=== PATIENT | male | born 1950 | race African-American/Black ===

== ENCOUNTER 2017-12-05 07:12 | Inpatient (IN) | payer OTHER, MEDICARE ==
[~2017-12-05] VITALS: Ht 172.7 cm; Wt 87.0 kg
[2017-12-05 07:12] VITALS: BP 123/89; PULSE 135; RESP 20; TEMP 97.8; O2SAT 97
[~2017-12-05 07:12] MED LIST: PRIL20CA PO
[2017-12-05 07:27] VITALS: BP 127/88; PULSE 125; RESP 22; O2SAT 96
[2017-12-05] MEDS ORDERED: SODIUM CHLORIDE 0.9% FLUSH 10 ML FLUSH IVF PRN (07:30)
[2017-12-05] MEDS ORDERED: [UNRECOGNIZED DRUG - CODE] PO (07:32)
[2017-12-05] MEDS ORDERED: CYCL5TAB PO (07:33)
[2017-12-05] MEDS ORDERED: [UNRECOGNIZED DRUG - OTHER] PO (07:33)
[2017-12-05] MEDS ORDERED: OMEP20TA93 PO (07:33)
[2017-12-05] MEDS ORDERED: ONDANSETRON HCL 4 MG/2 ML VIAL IV PUSH ONE (07:45)
[2017-12-05] MEDS ORDERED: SODIUM CHLOR 0.9% 1000 ML INJ 1,000 ML IV ONE ×3 (07:45→11:00)
--- NOTE | 2017-12-05 08:04 | RADRPT ---
EXAM DATE/TIME: 12/05/2017 07:32 [facility] COMPARISON: No previous studies available for comparison. INDICATIONS : Pain in center of chest, short of breath, has pain in abdomen and all over body MEDICAL HISTORY : None. SURGICAL HISTORY : None. ENCOUNTER: Initial ACUITY: 1 day PAIN SCORE: Non-responsive. LOCATION: Bilateral chest FINDINGS: A single view of the chest demonstrates the lungs to be symmetrically aerated without evidence of mas s, infiltrate or effusion. The cardiomediastinal contours are unremarkable. Osseous structures are intact. CONCLUSION: 1. No acute cardiopulmonary disease. Shorty Alexander MD on December 05, 2017 at 8:02 Board Certified Radiologist. This report was verified electronically.
[2017-12-05 08:27] LABS: AUTOMATED NEUTROPHIL # 5.4 TH/MM3 (1.8-7.7); BASOPHIL # 0.1 TH/MM3 (0-0.2); BASOPHIL % 0.9 % (0.0-2.0); EOSINOPHIL # 0.1 TH/MM3 (0-0.4); EOSINOPHIL % 1.3 % (0.0-4.0); HEMATOCRIT 50.1 % (39.0-51.0); HEMOGLOBIN 16.8 GM/DL (13.0-17.0); LYMPH % 31.6 % (9.0-44.0); MEAN CELL VOLUME 89.4 FL (80.0-100.0); MEAN CORPUSCULAR HEMOGLOBIN 29.9 PG (27.0-34.0); MEAN CORPUSCULAR HGB CONC 33.4 % (32.0-36.0); MEAN PLATELET VOLUME 9.1 FL (7.0-11.0); MONO % 8.8 % (0.0-8.0); MONOCYTE # 0.8 TH/MM3 (0-0.9); NEUT % 57.4 % (16.0-70.0); PLATELET COUNT 293 TH/MM3 (150-450); RED BLOOD COUNT 5.61 MIL/MM3 (4.50-5.90); RED CELL DISTRIBUTION WIDTH 14.1 % (11.6-17.2); WHITE BLOOD COUNT 9.4 TH/MM3 (4.0-11.0)
[2017-12-05 08:34] LABS: INTERNATIONAL NORMALIZED RATIO 1.2 RATIO; PROTHROMBIN TIME - PATIENT 12.2 SEC (9.8-11.6)
[2017-12-05 08:43] LABS: ALT (GPT) 44 U/L (12-78); AST (GOT) 36 U/L (15-37); BICARBONATE 20.4 MEQ/L (21.0-32.0); BLOOD UREA NITROGEN 17 MG/DL (7-18); CALCIUM 9.6 MG/DL (8.5-10.1); CHLORIDE 102 MEQ/L (98-107); CREATININE 2.33 MG/DL (0.60-1.30); GLOMERULAR FILTRATION RATE 34 ML/MIN (>89); GLUCOSE,RANDOM 185 MG/DL (74-106); SODIUM (NA) 137 MEQ/L (136-145)
[2017-12-05 08:48] LABS: ALKALINE PHOSPHATASE 57 U/L (45-117); TOTAL BILIRUBIN ADULT 0.4 MG/DL (0.2-1.0); TOTAL PROTEIN 10.1 GM/DL (6.4-8.2); TROPONIN I LESS THAN 0.02 NG/ML (0.02-0.05)
[2017-12-05 09:00] VITALS: BP 132/99; PULSE 88; RESP 16; O2SAT 99
[2017-12-05] MEDS ORDERED: PIPERACIL-TAZO 4.5 GM PREMIX 100 ML IV ONE (09:00)
--- NOTE | 2017-12-05 09:09 | PD ---
HPI Chief Complaint: Chest Pain Time Seen by Provider: 07:31 Travel History International Travel<30 days: No Contact w/Intl Traveler<30days: No Traveled to known affect area: No History of Present Illness HPI 67-year-old male presents with diffuse body aches, muscle cramps, nonbloody vomiting and diarrhea and abdominal pain since 2 AM this morning. He states he told out front he was also having chest pain but he is hurting all over. He states he took his 's Flexeril without relief. He denies any other specific complaints. He states he was feeling fine yesterday. He denies any sick contacts. He denies specific modifying factors. Quality is cramps. Severity is all over. He states that it is intermittent in nature. PFSH Past Medical History GERD: Yes Hypertension: Yes Past Surgical History Surgical History: No Previous Surgery Genitourinary Surgery: Yes Social History Alcohol Use: Yes (SOCIALLY-weekends) Tobacco Use: Yes (/ PPD) Substance Use: No Allergies-Medications (Allergen,Severity, Reaction): Coded Allergies: No Known Allergies (Verified Allergy, Unknown, 04/20/08) Reported Meds & Prescriptions Reported Meds & Active Scripts Active Reported Omeprazole 20 Mg Tab 20 Mg PO DAILY Flexeril (Cyclobenzaprine HCl) 5 Mg Tab 5 Mg PO TID [yrn-shea] 1 Tab PO DAILY [daron-plex] 1 Tab PO DAILY Review of Systems Except as stated in HPI: all other systems reviewed are Neg Physical Exam Narrative General: No apparent distress, well appearing ENT: Mucous membranes moist Neck: Neck is supple, no meningeal signs, trachea is midline Cardiovascular: Regular rate and rhythm Lungs: No increased respiratory effort noted, CTA bilaterally Abdomen: Soft, mild tenderness diffusely with deep palpation, ND, no rebound or guarding Extremities: No edema, no specific joint pain with rom of all joints Neuro: Awake, motor and sensation grossly intact, normal speech Psych: Appropriate mood and affect Data Data Last Documented VS Vital Signs Date Time Temp Pulse Resp B/P (MAP) Pulse Ox O2 Delivery O2 Flow Rate FiO2 12/05/17 09:00 88 16 132/99 (110) 99 Room Air 12/05/17 07:12 97.8 Orders Orders Electrocardiogram (12/05/17 07:26) Ckmb (Isoenzyme) Profile (12/05/17 07:26) Complete Blood Count With Diff (12/05/17 07:26) Comprehensive Metabolic Panel (12/05/17 07:26) Magnesium (Mg) (12/05/17 07:26) Prothrombin Time / Inr (Pt) (12/05/17 07:26) Act Partial Throm Time (Ptt) (12/05/17 07:26) Troponin I (12/05/17 07:26) Lipase (12/05/17 07:26) Chest, Single Ap (12/05/17 07:26) Ecg Monitoring (12/05/17 07:26) Bilateral Bp Monitoring (12/05/17 07:26) Iv Access Insert/Monitor (12/05/17 07:) Oximetry (12/05/17 07:) Sodium Chloride 0.9% Flush (Ns Flush) (12/05/17 07:30) Influenzae A/B Antigen (12/05/17 07:35) Sodium Chlor 0.9% 1000 Ml Inj (Ns 1000 M (12/05/17 07:45) Ondansetron Inj (Zofran Inj) (12/05/17 07:45) Alcohol (Ethanol) (12/05/17 07:35) Drug Screen, Random Urine (12/05/17 07:35) Lactic Acid (12/05/17 07:35) CKMB (12/05/17 08:00) CKMB% (12/05/17 08:00) Urinalysis - C+S If Indicated (12/05/17 08:59) Blood Culture (12/05/17 08:59) Piperacil-Tazo 4.5 Gm Premix (Zosyn 4.5 (12/05/17 09:00) Sodium Chlor 0.9% 1000 Ml Inj (Ns 1000 M (12/05/17 09:00) Ct Abd/Pel W/O Iv Contrast (12/05/17 ) Drug Screen, Random Urine (12/05/17 09:01) Admit Order (Ed Use Only) (12/05/17 10:13) Labs Laboratory Tests Test 12/05/17 08:00 White Blood Count 9.4 TH/MM3 Red Blood Count 5.61 MIL/MM3 Hemoglobin 16.8 GM/DL Hematocrit 50.1 % Mean Corpuscular Volume 89.4 FL Mean Corpuscular Hemoglobin 29.9 PG Mean Corpuscular Hemoglobin Concent 33.4 % Red Cell Distribution Width 14.1 % Platelet Count 293 TH/MM3 Mean Platelet Volume 9.1 FL Neutrophils (%) (Auto) 57.4 % Lymphocytes (%) (Auto) 31.6 % Monocytes (%) (Auto) 8.8 % Eosinophils (%) (Auto) 1.3 % Basophils (%) (Auto) 0.9 % Neutrophils # (Auto) 5.4 TH/MM3 Lymphocytes # (Auto) 3.0 TH/MM3 Monocytes # (Auto) 0.8 TH/MM3 Eosinophils # (Auto) 0.1 TH/MM3 Basophils # (Auto) 0.1 TH/MM3 CBC Comment DIFF FINAL Differential Comment Prothrombin Time 12.2 SEC Prothromb Time International Ratio 1.2 RATIO Activated Partial Thromboplast Time 24.3 SEC Blood Urea Nitrogen 17 MG/DL Creatinine 2.33 MG/DL Random Glucose 185 MG/DL Total Protein 10.1 GM/DL Albumin 5.0 GM/DL Calcium Level 9.6 MG/DL Magnesium Level 1.0 MG/DL Alkaline Phosphatase 57 U/L Aspartate Amino Transf (AST/SGOT) 36 U/L Alanine Aminotransferase (ALT/SGPT) 44 U/L Total Bilirubin 0.4 MG/DL Sodium Level 137 MEQ/L Potassium Level 3.3 MEQ/L Chloride Level 102 MEQ/L Carbon Dioxide Level 20.4 MEQ/L Anion Gap 15 MEQ/L Estimat Glomerular Filtration Rate 34 ML/MIN Lactic Acid Level 3.6 mmol/L Total Creatine Kinase 593 U/L Creatine Kinase MB 6.2 NG/ML Creatine Kinase MB % 1.0 % Troponin I LESS THAN 0.02 NG/ML Lipase 357 U/L Ethyl Alcohol Level LESS THAN 3 MG/DL MDM Medical Decision Making Medical Screen Exam Complete: Yes Emergency Medical Condition: Yes Medical Record Reviewed: Yes (Past history confirmed) Interpretation(s) CBC & BMP Diagram 12/05/17 08:00 Total Protein 10.1 H, Albumin 5.0, Calcium Level 9.6, Magnesium Level 1.0 L, Alkaline Phosphatase 57, Aspartate Amino Transf (AST/SGOT) 36, Alanine Aminotransferase (ALT/SGPT) 44, Total Bilirubin 0.4 Last 24 hours Impressions Chest X-Ray 12/05/17 0726 Signed Impressions: Service Date/Time: Tuesday, December 05, 2017 07:32 - CONCLUSION: 1. No acute cardiopulmonary disease. Shorty Alexander MD Abdomen/Pelvis CT 12/05/17 0000 Signed Impressions: Service Date/Time: Tuesday, December 05, 2017 09:19 - CONCLUSION: 1. Possible diffuse gastric wall thickening. If there are symptoms referrable to the upper GI tract, may consider direct visualization endoscopy. 2. Otherwise negative noncontrast CT abdomen/pelvis. Chicho Healy MD No prior creatinine for comparison except for normal in 2011 Differential Diagnosis URI, rhabdomyolysis, gastroenteritis, renal failure, electrolyte abnormality Narrative Course We will check blood work, influenza, chest x-ray and dose with Zofran and IV fluids and reevaluate Given elevated lactate we will add on blood cultures, urinalysis, CT scan abdominal pelvis and repeat IV fluids and dose with Zosyn while awaiting testing CT abdomen and pelvis shows thickened area of stomach without emergent process. Patient agrees to observation in the hospital for repeat lactate with continued treatment. Sepsis Criteria SIRS Criteria (2 or more): Heart rate over 90, RR > 20 or PaCO2 < 32 Sepsis Criteria (SIRS+source): Infect source susp/known Severe Sepsis (+one): Lactate >2 Criteria Outcome: Meets severe sepsis criteria Physician Communication Physician Communication dr camejo agrees to admit Diagnosis Primary Impression: Lactic acidosis Additional Impressions: Vomiting and diarrhea Body aches Gastric wall thickening Admitting Information Admitting Physician Requests: Observation Kylie Hill MD Dec 05, 2017 09:09
--- NOTE | 2017-12-05 09:45 | RADRPT ---
EXAM DATE/TIME: 12/05/2017 09:19 [facility] COMPARISON: No previous studies available for comparison. INDICATIONS : Abdominal pain and cramping ORAL CONTRAST: No oral contrast ingested. RADIATION DOSE: 6.85 CTDIvol (mGy) MEDICAL HISTORY : Hypertension. Gastroesophageal reflux disease. SURGICAL HISTORY : None. ENCOUNTER: Initial ACUITY: 2 days PAIN SCALE: 5/10 LOCATION: lower quadrant TECHNIQUE: Volumetric scanning of the abdomen and pelvis was performed. Using automated exposure control and ad justment of the mA and/or kV according to patient size, radiation dose was kept as low as reasonably achievable to obtain optimal diagnostic quality images. DICOM format image data is available electro nically for review and comparison. FINDINGS: LOWER LUNGS: The visualized lower lungs are clear. LIVER: Homogeneous density without lesion for noncontrast technique. There is no dilation of the biliary tr ee. No calcified gallstones. SPLEEN: Normal size without lesion. PANCREAS: Within normal limits. KIDNEYS: Normal in size and shape. There is no mass, stone, or hydronephrosis. ADRENAL GLANDS: Within normal limits. VASCULAR: There is no aortic aneurysm. BOWEL/MESENTERY: The stomach is nondistended. The wall of the stomach is prominent along both the lesser and greater curvature which is a nonspecific finding. No dilated loops of small large bowel. No evidence of rama e fluid. ABDOMINAL WALL: Within normal limits. RETROPERITONEUM: There is no lymphadenopathy. BLADDER: No wall thickening or mass. REPRODUCTIVE: Within normal limits. INGUINAL: There is no lymphadenopathy or hernia. MUSCULOSKELETAL: Within normal limits for patient age. CONCLUSION: 1. Possible diffuse gastric wall thickening. If there are symptoms referrable to the upper GI tract, may consider direct visualization endoscopy. 2. Otherwise negative noncontrast CT abdomen/pelvis. Chicho Healy MD on December 05, 2017 at 9:39 Board Certified Radiologist. This report was verified electronically.
[2017-12-05] MEDS ORDERED: SODIUM CHLORIDE 0.9% FLUSH 10 ML FLUSH IV FLUSH PRN (10:15)
[2017-12-05] MEDS ORDERED: NALOXONE HCL 0.4 MG/ML AMP IV PUSH PRN (10:15)
[2017-12-05] MEDS ORDERED: POTASSIUM CHLORIDE 20 MEQ CONTROLLED RELEASE TAB PO ONE (12:00)
[2017-12-05] MEDS ORDERED: POTASSIUM CHLOR 20 MEQ PREMIX 100 ML IV SCH (12:00)
[2017-12-05] MEDS ORDERED: ONDANSETRON HCL 4 MG/2 ML VIAL IVP PRN (12:00)
[2017-12-05] MEDS: SODIUM CHLOR 0.9% 1000 ML INJ 1,000 ML IV SCH ×2 (12:47→22:21)
[2017-12-05] MEDS: PANTOPRAZOLE SODIUM 40 MG VIAL IV PUSH SCH (12:48)
[2017-12-05 13:40] VITALS: BP 134/97; PULSE 95; RESP 24; O2SAT 98
--- NOTE | 2017-12-05 15:17 | HHI.HP ---
HPI [facility] Primary Care Physician No Primary Care Physician Admission Diagnosis vomiting, diarrhea, lactic acidosis Diagnoses: Travel History International Travel<30 Days: No Contact w/Intl Traveler <30 Da: No Traveled to Known Affected Are: No History of Present Illness spasms this mornign diarrhea abotu 4-5x this am vomited 3x adominal pain is all over no black or red was sweatign did not measure no sick contact no outside food about 3 weeks ago, had flu- went to his doctor and got some prescription - 6 packs 2 pills then 1 pill for next 4 days did have diarrhea then as well frequent urination then [facility] lpga and nova meds finsihed about a week ago have not used heavy weights or so past 6 months Review of Systems Except as stated in HPI: all other systems reviewed are Neg Past Family Social History Past Medical History htn Past Surgical History colonoscopy- was told to come back in 10yrs, and is almost due Allergies: Coded Allergies: No Known Allergies (Verified Allergy, Unknown, 04/20/08) Family History none that he knows of Social History quit smoking 10yrs ago drink etoh only every now and then no drugs Physical Exam Vital Signs Vital Signs Date Time Temp Pulse Resp B/P (MAP) Pulse Ox O2 Delivery O2 Flow Rate FiO2 12/05/17 14:58 12/05/17 13:40 95 24 134/97 (109) 98 Room Air 12/05/17 09:00 88 16 132/99 (110) 99 Room Air 12/05/17 07:27 125 22 127/88 (101) 96 Room Air 12/05/17 07:12 97.8 135 20 123/89 (100) 97 Room Air Physical Exam GENERAL: This is a well-nourished, well-developed patient, in no apparent distress. SKIN: No rashes, ecchymoses or lesions. Cool and dry. HEAD: Atraumatic. Normocephalic. No temporal or scalp tenderness. EYES: No scleral icterus. No injection or drainage. ENT: Nose without bleeding, purulent drainage or septal hematomaAirway patent. NECK: Trachea midline. No JVD CARDIOVASCULAR: Regular rate and rhythm without murmurs, gallops, or rubs. RESPIRATORY: Clear to auscultation. Breath sounds equal bilaterally. No wheezes , rales, or rhonchi. GASTROINTESTINAL: Abdomen soft, non-tender, nondistended. No guarding. MUSCULOSKELETAL: Extremities without clubbing, cyanosis, or edema. . No calf tenderness. NEUROLOGICAL: Awake and alert. Motor and sensory grossly within normal limits Normal speech. Laboratory Laboratory Tests Test 12/05/17 08:00 White Blood Count 9.4 Red Blood Count 5.61 Hemoglobin 16.8 Hematocrit 50.1 Mean Corpuscular Volume 89.4 Mean Corpuscular Hemoglobin 29.9 Mean Corpuscular Hemoglobin Concent 33.4 Red Cell Distribution Width 14.1 Platelet Count 293 Mean Platelet Volume 9.1 Neutrophils (%) (Auto) 57.4 Lymphocytes (%) (Auto) 31.6 Monocytes (%) (Auto) 8.8 Eosinophils (%) (Auto) 1.3 Basophils (%) (Auto) 0.9 Neutrophils # (Auto) 5.4 Lymphocytes # (Auto) 3.0 Monocytes # (Auto) 0.8 Eosinophils # (Auto) 0.1 Basophils # (Auto) 0.1 CBC Comment DIFF FINAL Differential Comment Prothrombin Time 12.2 Prothromb Time International Ratio 1.2 Activated Partial Thromboplast Time 24.3 Blood Urea Nitrogen 17 Creatinine 2.33 Random Glucose 185 Total Protein 10.1 Albumin 5.0 Calcium Level 9.6 Magnesium Level 1.0 Alkaline Phosphatase 57 Aspartate Amino Transf (AST/SGOT) 36 Alanine Aminotransferase (ALT/SGPT) 44 Total Bilirubin 0.4 Sodium Level 137 Potassium Level 3.3 Chloride Level 102 Carbon Dioxide Level 20.4 Anion Gap 15 Estimat Glomerular Filtration Rate 34 Lactic Acid Level 3.6 Total Creatine Kinase 593 Creatine Kinase MB 6.2 Creatine Kinase MB % 1.0 Troponin I LESS THAN 0.02 Lipase 357 Ethyl Alcohol Level LESS THAN 3 Date/Time Source Procedure Growth Status 12/05/17 09:30 Blood Peripheral Aerobic Blood Culture Pending Received 12/05/17 09:30 Blood Peripheral Anaerobic Blood Culture Pending Received 12/05/17 08:10 Nasal Aspirate Influenza Types A,B Antigen (MILADY) - Final NEGATIVE FOR FLU A AND B ANTIGEN.... Complete Result Diagram: 12/05/17 0800 12/05/17 0800 Imaging Last 48 hours Impressions Chest X-Ray 12/05/17 0726 Signed Impressions: Service Date/Time: Tuesday, December 05, 2017 07:32 - CONCLUSION: 1. No acute cardiopulmonary disease. Shorty Alexander MD Abdomen/Pelvis CT 12/05/17 0000 Signed Impressions: Service Date/Time: Tuesday, December 05, 2017 09:19 - CONCLUSION: 1. Possible diffuse gastric wall thickening. If there are symptoms referrable to the upper GI tract, may consider direct visualization endoscopy. 2. Otherwise negative noncontrast CT abdomen/pelvis. Chicho Healy MD [place] VTE Risk Assessment Caprini VTE Risk Assessment: Mod/High Risk (score >= 2) Caprini Risk Assessment Model Point Value = 1 Point Value = 2 Point Value = 3 Point Value = 5 Age 41-60 Minor surgery BMI > 25 kg/m2 Swollen legs Varicose veins or History of unexplained or recurrent spontaneous Oral contraceptives or hormone replacement Sepsis (< 1 month) Serious lung disease, including pneumonia (< 1 month) Abnormal pulmonary function Acute myocardial infarction Congestive heart failure (< 1 month) History of inflammatory bowel disease Medical patient at bed rest Age 61-74 Arthroscopic surgery Major open surgery (> 45 min) Laparoscopic surgery (> 45 min) Malignancy Confined to bed (> 72 hours) Immobilizing plaster cast Central venous access Age >= 75 History of VTE Family history of VTE Factor V Leiden Prothrombin [id number] Lupus anticoagulant Anticardiolipin antibodies Elevated serum homocysteine Heparin-induced thrombocytopenia Other congenital or acquired thrombophilia Stroke (< 1 month) Elective arthroplasty Hip, pelvis, or leg fracture Acute spinal cord injury (< 1 month) Prophylaxis Regimen Total Risk Factor Score Risk Level Prophylaxis Regimen 0-1 Low Early ambulation 2 Moderate Order ONE of the following: *Sequential Compression Device (SCD) *Heparin 5000 units SQ BID 3-4 Higher Order ONE of the following medications: *Heparin 5000 units SQ TID *Enoxaparin/Lovenox 40 mg SQ daily (WT < 150 kg, CrCl > 30 mL/min) *Enoxaparin/Lovenox 30 mg SQ daily (WT < 150 kg, CrCl > 10-29 mL/min) *Enoxaparin/Lovenox 30 mg SQ BID (WT < 150 kg, CrCl > 30 mL/min) AND/OR *Sequential Compression Device (SCD) 5 or more Highest Order ONE of the following medications: *Heparin 5000 units SQ TID (Preferred with Epidurals) *Enoxaparin/Lovenox 40 mg SQ daily (WT < 150 kg, CrCl > 30 mL/min) *Enoxaparin/Lovenox 30 mg SQ daily (WT < 150 kg, CrCl > 10-29 mL/min) *Enoxaparin/Lovenox 30 mg SQ BID (WT < 150 kg, CrCl > 30 mL/min) AND *Sequential Compression Device (SCD) Assessment and Plan Assessment and Plan Impression: gastroenteritis. However somewhat unusual presentation. Suspect the patient is having these symptoms for about 3 weeks. Rule out C. difficile colitis given patient was on antibiotics as well. acute renal failure mild ck elevation hx of taking supplements [id number] nonprescription. hx of htn Plan: IV hydration. Stool for C. difficile. Will also send stool studies for cultures. PPI. GI consult. Patient reports he takes a blood pressure medicine which is 10 mg. He however does not remember the name and is not on meds list as this was not part of the bottles that the patient's brought in. For now, would start patient on Norvasc 10 mg for BP control. We'll need to check with pharmacy in the morning. We'll follow renal function post hydration. Follow CPK serially. Patient is informed regarding caution with nonprescription [id number] herbal medications. DVT prophylaxis with SCD. Discussed Condition With Patient, ER physician Physician Certification Order for Inpatient Services The services are ordered in accordance with Medicare regulations or non- Medicare payer requirements, as applicable. In the case of services not specified as inpatient-only, they are appropriately provided as inpatient services in accordance with the 2-midnight benchmark. days is the estimated time the patient will need to remain in the hospital, assuming treatment plan goals are met and no additional complications. Danii Vance MD Dec 05, 2017 15:17
[2017-12-05 16:00] VITALS: BP 143/106; PULSE 88; RESP 19; TEMP 97.6; O2SAT 97
[2017-12-05] MEDS ORDERED: MAGNESIUM SULFATE 1 GM PREMIX 100 ML IV ONE (16:30)
--- NOTE | 2017-12-05 16:30 | PD.CONS ---
HPI History of Present Illness This is a 67 year old male who presented with nausea, vomiting, abd pain, diarrhea. This morning he had n/v, with lower abd pain that became diffuse, and loose stools. he feels better at this time. No blood in stool or vomit, no black tarry stool. He occasionally notices BRBPR after eating spicy food, attributes this to hemorrhoid irritation. he had a z pack for his flu 2 weeks ago. He does not have a fever. Denies sick contacts, change in medications or routine. Not on blood thinners. CT showed poss gastric wall thickening. Had colonoscopy 10 y ago at [facility] and "no polyps were found." WAs scheduled for one last week but he cancelled b/c of insurance issues. (Brooke Magaña) PFSH Past Medical History htn GERD Past Surgical History colonoscopy- was told to come back in 10yrs, and is almost due (Brooke Magaña) Coded Allergies: No Known Allergies (Verified Allergy, Unknown, 04/20/08) Family History none that he knows of Social History quit smoking 10yrs ago drink etoh only every now and then no drugs (Brooke Magaña) Review of Systems Constitutional: DENIES: Fever Endocrine: DENIES: Polydipsia Eyes: DENIES: Blurred vision Ears, nose, mouth, throat: DENIES: Hearing loss Respiratory: DENIES: Hemoptysis Gastrointestinal: DENIES: Abdominal pain, Diarrhea, Nausea, Vomiting Musculoskeletal: DENIES: Joint pain Integumentary: DENIES: Abnormal pigmentation Hematologic/lymphatic: DENIES: Bruising Immunologic/allergic: DENIES: Eczema Neurologic: DENIES: Abnormal gait Psychiatric: DENIES: Anxiety (Brooke Magaña) GI Exam Vitals I&O Vital Signs Date Time Temp Pulse Resp B/P (MAP) Pulse Ox O2 Delivery O2 Flow Rate FiO2 12/05/17 14:58 12/05/17 13:40 95 24 134/97 (109) 98 Room Air 12/05/17 09:00 88 16 132/99 (110) 99 Room Air 12/05/17 07:27 125 22 127/88 (101) 96 Room Air 12/05/17 07:12 97.8 135 20 123/89 (100) 97 Room Air I/O 12/04/17 12/04/17 12/04/17 12/05/17 12/05/17 12/05/17 07:00 15:00 23:00 07:00 15:00 23:00 Intake Total 2100 ml 0 ml Balance 2100 ml 0 ml Intake IV Total 2100 ml 0 ml Imaging Last Impressions Chest X-Ray 12/05/17 0726 Signed Impressions: Service Date/Time: Tuesday, December 05, 2017 07:32 - CONCLUSION: 1. No acute cardiopulmonary disease. Shorty Alexander MD Abdomen/Pelvis CT 12/05/17 0000 Signed Impressions: Service Date/Time: Tuesday, December 05, 2017 09:19 - CONCLUSION: 1. Possible diffuse gastric wall thickening. If there are symptoms referrable to the upper GI tract, may consider direct visualization endoscopy. 2. Otherwise negative noncontrast CT abdomen/pelvis. Chicho Healy MD Laboratory Test 12/05/17 08:00 White Blood Count 9.4 TH/MM3 Red Blood Count 5.61 MIL/MM3 Hemoglobin 16.8 GM/DL Hematocrit 50.1 % Mean Corpuscular Volume 89.4 FL Mean Corpuscular Hemoglobin 29.9 PG Mean Corpuscular Hemoglobin Concent 33.4 % Red Cell Distribution Width 14.1 % Platelet Count 293 TH/MM3 Mean Platelet Volume 9.1 FL Neutrophils (%) (Auto) 57.4 % Lymphocytes (%) (Auto) 31.6 % Monocytes (%) (Auto) 8.8 % Eosinophils (%) (Auto) 1.3 % Basophils (%) (Auto) 0.9 % Neutrophils # (Auto) 5.4 TH/MM3 Lymphocytes # (Auto) 3.0 TH/MM3 Monocytes # (Auto) 0.8 TH/MM3 Eosinophils # (Auto) 0.1 TH/MM3 Basophils # (Auto) 0.1 TH/MM3 CBC Comment DIFF FINAL Differential Comment Prothrombin Time 12.2 SEC Prothromb Time International Ratio 1.2 RATIO Activated Partial Thromboplast Time 24.3 SEC Blood Urea Nitrogen 17 MG/DL Creatinine 2.33 MG/DL Random Glucose 185 MG/DL Total Protein 10.1 GM/DL Albumin 5.0 GM/DL Calcium Level 9.6 MG/DL Magnesium Level 1.0 MG/DL Alkaline Phosphatase 57 U/L Aspartate Amino Transf (AST/SGOT) 36 U/L Alanine Aminotransferase (ALT/SGPT) 44 U/L Total Bilirubin 0.4 MG/DL Sodium Level 137 MEQ/L Potassium Level 3.3 MEQ/L Chloride Level 102 MEQ/L Carbon Dioxide Level 20.4 MEQ/L Anion Gap 15 MEQ/L Estimat Glomerular Filtration Rate 34 ML/MIN Lactic Acid Level 3.6 mmol/L Total Creatine Kinase 593 U/L Creatine Kinase MB 6.2 NG/ML Creatine Kinase MB % 1.0 % Troponin I LESS THAN 0.02 NG/ML Lipase 357 U/L Ethyl Alcohol Level LESS THAN 3 MG/DL Date/Time Source Procedure Growth Status 12/05/17 09:30 Blood Peripheral Aerobic Blood Culture Pending Received 12/05/17 09:30 Blood Peripheral Anaerobic Blood Culture Pending Received 12/05/17 08:10 Nasal Aspirate Influenza Types A,B Antigen (MILADY) - Final NEGATIVE FOR FLU A AND B ANTIGEN.... Complete Physical Examination HEENT: PERRL; normocephalic; atraumatic; no jaundice. CHEST: CTA CARDIAC: irr HR ABDOMEN: Soft, nondistended, nontender; no hepatosplenomegaly; bowel sounds are present in all four quadrants. EXTREMITIES: No clubbing, cyanosis, or edema. SKIN: Normal; no rash; no jaundice. DIRECTOR SEMICONDUCTOR: No focal deficits; alert and oriented times three. (Brooke Magaña) Assessment and Plan Plan ASSESSMENT - n/v/diarrhea, abd pain, abnormal imaging - onset today. sx have improved since this morning. CT showed poss gastric wall thickening last colonoscopy 10y ago no polyps found, due for his colonoscopy. labs unremarkable - acute renal failure, elevated ck per primary PLAN - EGD - obtain consent - NPO after midnight - clears for now - stool studies - colonoscopy inpt vs outpt - further recs to follow pt seen by myself and Dr Woods and this note is on his behalf (Brooke Magaña) Physician Comments Seen and examined with KENNEDY, egd tomorrow. Stool studies. Colonoscopy once renal fxns improved. Thank you. (Los Woods MD) Brooke Magaña Dec 05, 2017 16:30 Los Woods MD Dec 05, 2017 16:46
--- NOTE | 2017-12-05 19:56 | EKG ---
Date Performed: 12/05/2017 Time Performed: 07:25:56 PTAGE: 67 years EKG: SINUS TACHYCARDIA NONSPECIFIC T-WAVE ABNORMALITY ABNORMAL RHYTHM ECG PREVIOUS TRACING : 12/06/2011 03.42 WHEN COMPARED TO PRIOR TRACING THE PATIENT IS NOW TACHYCARD IC. DOCTOR: Yandy Sparks Interpretating Date/Time 12/05/2017 19:55:58
[2017-12-05 20:00] VITALS: BP 137/94; PULSE 85; PULSE 90; RESP 18; TEMP 97.8; O2SAT 93
[2017-12-05] MEDS: SODIUM CHLORIDE 0.9% FLUSH 10 ML FLUSH IV FLUSH SCH (21:00)
[2017-12-05 22:18] LABS: TROPONIN I 0.03 NG/ML (0.02-0.05)
[2017-12-05] MEDS ORDERED: LACTATED RINGER'S 1000 ML IV PRN (22:45)
[2017-12-06] VITALS (9 sets, daily range): BP systolic 119–141; BP diastolic 85–97; PULSE 75–91; RESP 18–20; TEMP 97–98; O2SAT 96–99
[2017-12-06] MEDS: SODIUM CHLOR 0.9% 1000 ML INJ 1,000 ML IV SCH ×3 (05:20→21:49)
[2017-12-06 06:42] LABS: BASOPHIL # 0.1 TH/MM3 (0-0.2); BASOPHIL % 1.2 % (0.0-2.0); EOSINOPHIL # 0.2 TH/MM3 (0-0.4); EOSINOPHIL % 2.5 % (0.0-4.0); HEMATOCRIT 40.3 % (39.0-51.0); HEMOGLOBIN 13.6 GM/DL (13.0-17.0); LYMPHOCYTE # 1.9 TH/MM3 (1.0-4.8); MEAN CELL VOLUME 89.6 FL (80.0-100.0); MEAN CORPUSCULAR HEMOGLOBIN 30.2 PG (27.0-34.0); MEAN CORPUSCULAR HGB CONC 33.7 % (32.0-36.0); MEAN PLATELET VOLUME 9.1 FL (7.0-11.0); MONO % 9.7 % (0.0-8.0); MONOCYTE # 0.7 TH/MM3 (0-0.9); NEUT % 58.6 % (16.0-70.0); PLATELET COUNT 201 TH/MM3 (150-450); RED BLOOD COUNT 4.49 MIL/MM3 (4.50-5.90); RED CELL DISTRIBUTION WIDTH 14.1 % (11.6-17.2); WHITE BLOOD COUNT 6.8 TH/MM3 (4.0-11.0)
[2017-12-06 06:47] LABS: BILIRUBIN, URINE NEG (NEG); BLOOD, URINE NEG (NEG); GLUCOSE,URINE NEG (NEG); KETONE, URINE 10 mg/dL (NEG); MUCUS URINE FEW /lpf (OCC); NITRITE,URINE NEG (NEG); PH, URINE 5.5 (5.0-8.5); URINE COLOR YELLOW (YELLW/STRAW); URINE LEUKOCYTE ESTERASE NEG (NEG)
[2017-12-06 07:15] LABS: ALBUMIN 3.5 GM/DL (3.4-5.0); ALT (GPT) 30 U/L (12-78); AST (GOT) 43 U/L (15-37); BICARBONATE 21.8 MEQ/L (21.0-32.0); BLOOD UREA NITROGEN 12 MG/DL (7-18); CALCIUM 7.8 MG/DL (8.5-10.1); CHLORIDE 110 MEQ/L (98-107); CREATININE 1.02 MG/DL (0.60-1.30); GLOMERULAR FILTRATION RATE 89 ML/MIN (>89); GLUCOSE,RANDOM 83 MG/DL (74-106); SODIUM (NA) 142 MEQ/L (136-145)
[2017-12-06 07:22] LABS: ALKALINE PHOSPHATASE 40 U/L (45-117); TOTAL BILIRUBIN ADULT 0.5 MG/DL (0.2-1.0); TROPONIN I 0.03 NG/ML (0.02-0.05)
--- NOTE | 2017-12-06 07:58 | EKG ---
Date Performed: 12/05/2017 Time Performed: 21:37:22 PTAGE: 67 years EKG: Sinus rhythm NORMAL ECG PREVIOUS TRACING : 12/05/2017 17.26 DOCTOR: Elfego Duran Interpretating Date/Time 12/06/2017 07:54:17
--- NOTE | 2017-12-06 08:15 | EKG ---
Date Performed: 12/05/2017 Time Performed: 17:26:50 PTAGE: 67 years EKG: Sinus rhythm WITH OCCASIONAL VENTRICULAR PREMATURE COMPLEXES NONSPECIFIC T-WAVE ABNORMALITY BORDERLINE ECG PREVIOUS TRACING : 12/05/2017 07.25 DOCTOR: Elfego Duran Interpretating Date/Time 12/06/2017 08:14:48
[2017-12-06] MEDS: SODIUM CHLORIDE 0.9% FLUSH 10 ML FLUSH IV FLUSH SCH ×2 (09:00→19:28)
--- NOTE | 2017-12-06 10:30 | GIPROC ---
[facility] [address] [facility]. [facility] [place], [address] EGD PROCEDURE REPORT EXAM DATE: 12/06/2017 PATIENT NAME: Junior Marcus Sevilla MR #: [id number] BIRTHDATE: 1950 ATTENDING: [place] MD ORDER #: [id number] PC ANALYST: Jackie Cason and Jose Elizabeth STATUS: inpatient INDICATIONS: The patient is a 67 yr old male here for an EGD due to epigastric abdominal pain and abnormal CT of the GI tract PROCEDURE PERFORMED: EGD w/ biopsy MEDICATIONS: Per Anesthesia and None. TOPICAL ANESTHETIC: CONSENT: The patient understands the risks and benefits of the procedure and understands that these risks include, but are not limited to: sedation, allergic reaction, infection, perforation and/or bleeding. Alternative means of evaluation and treatment include, among others: physical exam, x-rays, and/or surgical intervention. The patient elects to proceed with this endoscopic procedure. medical equipment was checked for proper function. Hand hygiene and appropriate measures for infection prevention was taken. After the risks, benefits and alternatives of the procedure were thoroughly explained, Informed consent was verified, confirmed and timeout was successfully executed by the treatment team. The patient was anesthetized with topical anesthesia and the Pentax EG-[id number] endoscope was introduced through the mouth and advanced to the second portion of the duodenum. Retroflexed views revealed no abnormalities The gastroscope was then slowly withdrawn and removed. ESOPHAGUS: The mucosa of the esophagus appeared normal. STOMACH: There was erythematous moderate gastritis in the gastric body. Two non-bleeding, shallow and clean-based ulcers ranging between 3-5 mm in size were found in the gastric antrum. Biopsies were taken at edge of the ulcers. A biopsy was performed using cold forceps. Sample sent for histology. DUODENUM: Moderate duodenal inflammation was found in the bulb and second portion of the duodenum. A diverticulum was found in the 2nd part of the duodenum. ADVERSE EVENTS: There were no complications. IMPRESSIONS: 1. The esophagus appeared normal 2. There was erythematous gastritis in the gastric body 3. Two ulcers ranging between 3-5 mm in size were found in the gastric antrum; biopsies were taken 4. Duodenal inflammation was found in the bulb and second portion of the duodenum 5. Diverticulum was found in the 2nd part of the duodenum 6. Retroflexed views revealed no abnormalities RECOMMENDATIONS: 1. Await biopsy results. Biopsy results will not be ready for 7-10 days. If you don't hear from us in two weeks, call our office for biopsy results. 2. Anti-reflux regimen 3. Continue PPI 4. Avoid NSAIDS 5. Colonoscopy PATIENT CONDITION: stable DISPOSITION: Inpatient REPEAT EXAM: Return 3 months EGD pending biopsy results [place] MD eSigned: [place] MD 12/06/2017 10:30 AM cc: PATIENT NAME: Junior Marcus Sevilla MR#: [id number]
[2017-12-06] MEDS ORDERED: DO NOT ADM ANY ANTICOAGULANT DRUGS PRN (10:33)
[2017-12-06] MEDS ORDERED: PROPOFOL 200 MG/20 ML AMP IV ONE (12:00)
[2017-12-06] MEDS ORDERED: ePHEDrine/NS 25 MG/5 ML SYRINGE IV ONE (12:00)
[2017-12-06] MEDS ORDERED: LIDOCAINE HCL 1% PF 5 ML SYRINGE OTHER ONE (12:00)
[2017-12-06] MEDS: PANTOPRAZOLE SODIUM 40 MG VIAL IV PUSH SCH (13:03)
--- NOTE | 2017-12-06 16:32 | HHI.PR ---
Subjective Remarks The patient denies nausea vomiting or abdominal pain. Diarrhea has resolved. Denies fevers or chills. Denies chest pain or shortness of breath. Objective Vitals Vital Signs Date Time Temp Pulse Resp B/P (MAP) Pulse Ox O2 Delivery O2 Flow Rate FiO2 12/06/17 12:00 97.0 75 18 141/97 (112) 97 12/06/17 08:00 97.6 89 18 137/91 (106) 98 12/06/17 04:01 80 12/06/17 04:00 97.6 77 18 139/88 (105) 97 12/06/17 00:03 86 12/06/17 00:00 97.7 91 18 125/97 (106) 96 12/05/17 20:00 85 12/05/17 20:00 97.8 90 18 137/94 (108) 93 I/O 12/05/17 12/05/17 12/05/17 12/06/17 12/06/17 12/06/17 06:59 14:59 22:59 06:59 14:59 22:59 Intake Total 2100 ml 1000 ml 821 ml 50 ml Balance 2100 ml 1000 ml 821 ml 50 ml Intake IV Total 2100 ml 1000 ml 821 ml Other 50 ml # Voids 1 # Bowel Movements 1 Result Diagram: 12/06/17 0517 12/06/17 0517 Imaging Last Impressions Chest X-Ray 12/05/17 0726 Signed Impressions: Service Date/Time: Tuesday, December 05, 2017 07:32 - CONCLUSION: 1. No acute cardiopulmonary disease. Shorty Alexander MD Abdomen/Pelvis CT 12/05/17 0000 Signed Impressions: Service Date/Time: Tuesday, December 05, 2017 09:19 - CONCLUSION: 1. Possible diffuse gastric wall thickening. If there are symptoms referrable to the upper GI tract, may consider direct visualization endoscopy. 2. Otherwise negative noncontrast CT abdomen/pelvis. Chicho Healy MD Objective Remarks GENERAL: NAD, lying in bed SKIN: Warm and dry. HEAD: Normocephalic. EYES: No scleral icterus. No injection or drainage. NECK: Supple, trachea midline. No JVD or lymphadenopathy. CARDIOVASCULAR: Regular rate and rhythm without murmurs, gallops, or rubs. RESPIRATORY: Breath sounds equal bilaterally. No accessory muscle use. GASTROINTESTINAL: Abdomen soft, non-tender, nondistended. MUSCULOSKELETAL: No cyanosis, or edema. BACK: Nontender without obvious deformity. No CVA tenderness. Medications and IVs Current Medications Medications (Trade) Dose Ordered Sig/Kvng Route Start Time Stop Time Status Last Admin Sodium Chloride 1,000 ml @ 100 mls/hr Q10H IV 12/05/17 12:00 12/06/17 05:20 (NS Flush) 2 ml UNSCH PRN IV FLUSH 12/05/17 10:15 (NS Flush) 2 ml BID IV FLUSH 12/05/17 21:00 (Zofran Inj) 4 mg Q6H PRN IVP 12/05/17 12:00 (Narcan Inj) 0.4 mg UNSCH PRN IV PUSH 12/05/17 10:15 (Protonix Inj) 40 mg Q24H IV PUSH 12/05/17 12:00 12/06/17 13:03 (Norvasc) 10 mg DAILY PO 12/06/17 09:00 12/06/17 08:59 Lactated Ringer's 1,000 ml @ 30 mls/hr Q24H PRN IV 12/05/17 22:45 12/08/17 22:44 Miscellaneous Information ALL NURSING DEPARTME... UNSCH PRN .XX 12/06/17 10:33 12/07/17 10:32 A/P Problem List: (1) Acute gastroenteritis ICD Code: K52.9 - Noninfective gastroenteritis and colitis, unspecified Plan: Patient presented with nausea vomiting diarrhea and abdominal pain. Symptoms have improved and resolved. CT of the abdomen and pelvis showed possible gastric wall thickening. The patient is status post EGD were erythematous gastritis was found on the gastric body. There were 2 ulcers observed in the gastric antrum. Biopsies taken, follow-up pathology. There was also observed duodenal inflammation in the bulb and second portion of the duodenum. Diverticulum found on the second part of the duodenum. Continue Protonix 40 mg IV twice daily. Discussed the case with Dr. Tejada. The patient will need an outpatient colonoscopy. Patient cleared from a respiratory standpoint to be discharged. (2) Vomiting and diarrhea ICD Code: R11.10 - Vomiting, unspecified; R19.7 - Diarrhea, unspecified Status: Acute Plan: Resolved. Zofran as needed for nausea. (3) Gastric wall thickening ICD Code: K31.89 - Other diseases of stomach and duodenum; R19.7 - Diarrhea, unspecified Status: Acute Plan: Status post EGD. Management as above. (4) Muscle spasm ICD Code: M62.838 - Other muscle spasm Plan: Likely secondary to dehydration due to acute gastroenteritis. (5) SEAN (acute kidney injury) ICD Code: N17.9 - Acute kidney failure, unspecified Plan: Secondary to prerenal azotemia due to dehydration secondary to acute gastroenteritis. Acute kidney injury has resolved after IV fluid administration. Continue IV fluids for now. Continue to monitor BUN and creatinine, straight I's and O's and avoid nephrotoxins. (6) Rhabdomyolysis ICD Code: M62.82 - Rhabdomyolysis Plan: Likely secondary to muscle spasms. CK initially 593, trended up to 2030. I will increase the rate of IV normal saline for 100 mL's per hours to 150 mils per hour and continue to monitor CPK. Assessment and Plan GI prophylaxis: PPI. DVT prophylaxis: SCDs. Discharge Planning Continue to monitor on the medical floor. Discharge pending resolution of rhabdomyolysis. Problem Qualifiers (1) Rhabdomyolysis: Qualified Codes: M62.82 - Rhabdomyolysis Tom Contreras MD Dec 06, 2017 16:32
[2017-12-07] VITALS: BP 129/93; PULSE 82; RESP 20; TEMP 97.7; O2SAT 98
[2017-12-07 04:00] VITALS: BP 114/90; PULSE 76; RESP 20; TEMP 97.6; O2SAT 100
[2017-12-07 06:03] LABS: AUTOMATED NEUTROPHIL # 2.5 TH/MM3 (1.8-7.7); EOSINOPHIL # 0.2 TH/MM3 (0-0.4); EOSINOPHIL % 4.2 % (0.0-4.0); HEMATOCRIT 39.4 % (39.0-51.0); HEMOGLOBIN 13.1 GM/DL (13.0-17.0); LYMPH % 32.1 % (9.0-44.0); LYMPHOCYTE # 1.5 TH/MM3 (1.0-4.8); MEAN CELL VOLUME 89.2 FL (80.0-100.0); MEAN CORPUSCULAR HEMOGLOBIN 29.7 PG (27.0-34.0); MEAN CORPUSCULAR HGB CONC 33.2 % (32.0-36.0); MONOCYTE # 0.5 TH/MM3 (0-0.9); NEUT % 52.7 % (16.0-70.0); PLATELET COUNT 199 TH/MM3 (150-450); RED BLOOD COUNT 4.42 MIL/MM3 (4.50-5.90); RED CELL DISTRIBUTION WIDTH 14.3 % (11.6-17.2); WHITE BLOOD COUNT 4.8 TH/MM3 (4.0-11.0)
[2017-12-07 06:48] LABS: ALKALINE PHOSPHATASE 36 U/L (45-117); TOTAL BILIRUBIN ADULT 0.2 MG/DL (0.2-1.0); TOTAL PROTEIN 6.7 GM/DL (6.4-8.2)
[2017-12-07 06:50] LABS: ALBUMIN 3.1 GM/DL (3.4-5.0); ALT (GPT) 31 U/L (12-78); AST (GOT) 46 U/L (15-37); BLOOD UREA NITROGEN 8 MG/DL (7-18); CALCIUM 7.7 MG/DL (8.5-10.1); CHLORIDE 110 MEQ/L (98-107); CREATININE 0.87 MG/DL (0.60-1.30); GLOMERULAR FILTRATION RATE 107 ML/MIN (>89); GLUCOSE,RANDOM 85 MG/DL (74-106); PHOSPHORUS 3.6 MG/DL (2.5-4.9); SODIUM (NA) 141 MEQ/L (136-145)
[2017-12-07 08:00] VITALS: BP 146/92; PULSE 73; RESP 18; TEMP 97.9; O2SAT 97
[2017-12-07] MEDS: SODIUM CHLORIDE 0.9% FLUSH 10 ML FLUSH IV FLUSH SCH ×2 (09:00→19:34)
[2017-12-07] MEDS: SODIUM CHLOR 0.9% 1000 ML INJ 1,000 ML IV SCH ×3 (09:39→23:02)
[2017-12-07 12:00] VITALS: BP 146/87; PULSE 84; RESP 18; TEMP 98.8; O2SAT 98
[2017-12-07] MEDS: PANTOPRAZOLE SODIUM 40 MG VIAL IV PUSH SCH (12:27)
--- NOTE | 2017-12-07 14:42 | HHI.PR ---
Subjective Remarks Patient denies chest pain or shortness of breath. Stable vital signs. Objective Vitals Vital Signs Date Time Temp Pulse Resp B/P (MAP) Pulse Ox O2 Delivery O2 Flow Rate FiO2 12/07/17 12:00 98.8 84 18 146/87 (106) 98 12/07/17 08:00 97.9 73 18 146/92 (110) 97 12/07/17 04:00 97.6 76 20 114/90 (98) 100 12/07/17 00:00 97.7 82 20 129/93 (105) 98 12/06/17 20:00 97.8 85 20 119/85 (96) 96 12/06/17 18:13 99 21 12/06/17 16:00 98.0 87 19 137/87 (104) 99 I/O 12/06/17 12/06/17 12/06/17 12/07/17 12/07/17 12/07/17 07:00 15:00 23:00 07:00 15:00 23:00 Intake Total 821 ml 50 ml 1240 ml Balance 821 ml 50 ml 1240 ml Intake Oral 240 ml IV Total 821 ml 1000 ml Other 50 ml # Voids 1 2 # Bowel Movements 1 0 Result Diagram: 12/07/17 0458 12/07/17 0458 Imaging Last 72 hours Impressions Chest X-Ray 12/05/17 0726 Signed Impressions: Service Date/Time: Tuesday, December 05, 2017 07:32 - CONCLUSION: 1. No acute cardiopulmonary disease. Shorty Alexander MD Abdomen/Pelvis CT 12/05/17 0000 Signed Impressions: Service Date/Time: Tuesday, December 05, 2017 09:19 - CONCLUSION: 1. Possible diffuse gastric wall thickening. If there are symptoms referrable to the upper GI tract, may consider direct visualization endoscopy. 2. Otherwise negative noncontrast CT abdomen/pelvis. Chicho Healy MD Objective Remarks GENERAL: NAD, lying in bed SKIN: Warm and dry. HEAD: Normocephalic. EYES: No scleral icterus. No injection or drainage. NECK: Supple, trachea midline. No JVD or lymphadenopathy. CARDIOVASCULAR: Regular rate and rhythm without murmurs, gallops, or rubs. RESPIRATORY: Breath sounds equal bilaterally. No accessory muscle use. GASTROINTESTINAL: Abdomen soft, non-tender, nondistended. MUSCULOSKELETAL: No cyanosis, or edema. BACK: Nontender without obvious deformity. No CVA tenderness. Medications and IVs Current Medications Medications (Trade) Dose Ordered Sig/Kvng Route Start Time Stop Time Status Last Admin Sodium Chloride 1,000 ml @ 150 mls/hr Q6H40M IV 12/05/17 12:00 12/07/17 09:39 (NS Flush) 2 ml UNSCH PRN IV FLUSH 12/05/17 10:15 (NS Flush) 2 ml BID IV FLUSH 12/05/17 21:00 (Zofran Inj) 4 mg Q6H PRN IVP 12/05/17 12:00 (Narcan Inj) 0.4 mg UNSCH PRN IV PUSH 12/05/17 10:15 (Protonix Inj) 40 mg Q24H IV PUSH 12/05/17 12:00 12/07/17 12:27 (Norvasc) 10 mg DAILY PO 12/06/17 09:00 12/07/17 10:02 Lactated Ringer's 1,000 ml @ 30 mls/hr Q24H PRN IV 12/05/17 22:45 12/08/17 22:44 A/P Problem List: (1) Acute gastroenteritis ICD Code: K52.9 - Noninfective gastroenteritis and colitis, unspecified Plan: Patient presented with nausea vomiting diarrhea and abdominal pain. Symptoms have improved and resolved. CT of the abdomen and pelvis showed possible gastric wall thickening. The patient is status post EGD were erythematous gastritis was found on the gastric body. There were 2 ulcers observed in the gastric antrum. Biopsies taken, follow-up pathology. There was also observed duodenal inflammation in the bulb and second portion of the duodenum. Diverticulum found on the second part of the duodenum. Continue Protonix 40 mg IV twice daily. Discussed the case with Dr. Tejada. The patient will need an outpatient colonoscopy. Patient cleared from a respiratory standpoint to be discharged. (2) Vomiting and diarrhea ICD Code: R11.10 - Vomiting, unspecified; R19.7 - Diarrhea, unspecified Status: Acute Plan: Resolved. Zofran as needed for nausea. (3) Gastric wall thickening ICD Code: K31.89 - Other diseases of stomach and duodenum; R19.7 - Diarrhea, unspecified Status: Acute Plan: Status post EGD. Management as above. (4) Muscle spasm ICD Code: M62.838 - Other muscle spasm Status: Resolved Plan: Likely secondary to dehydration due to acute gastroenteritis. (5) SEAN (acute kidney injury) ICD Code: N17.9 - Acute kidney failure, unspecified Status: Resolved Plan: Secondary to prerenal azotemia due to dehydration secondary to acute gastroenteritis. Acute kidney injury has resolved after IV fluid administration. Continue IV fluids for now. Continue to monitor BUN and creatinine, straight I's and O's and avoid nephrotoxins. (6) Rhabdomyolysis ICD Code: M62.82 - Rhabdomyolysis Status: Acute Plan: Likely secondary to muscle spasms. CK initially 593, trended up to 2030. I will increase the rate of IV normal saline for 100 mL's per hours to 150 mils per hour and continue to monitor CPK. 12/07 CPK still elevated at 1959. Continue IV fluids. I will increase to rate of normal saline up to 1 50 mph. Continue to monitor CPK. Assessment and Plan GI prophylaxis: PPI. DVT prophylaxis: SCDs. Discharge Planning Continue to monitor on the medical floor. Discharge pending resolution of rhabdomyolysis. Problem Qualifiers (1) Rhabdomyolysis: Qualified Codes: M62.82 - Rhabdomyolysis Tom Contreras MD Dec 07, 2017 14:42
[2017-12-07 17:24] VITALS: O2SAT 98
[2017-12-07 20:00] VITALS: BP 152/96; PULSE 69; RESP 20; TEMP 98.3; O2SAT 99
[2017-12-08] VITALS (8 sets, daily range): BP systolic 126–176; BP diastolic 82–98; PULSE 69–78; RESP 17–20; TEMP 96.6–99; O2SAT 94–100
[2017-12-08] MEDS: SODIUM CHLOR 0.9% 1000 ML INJ 1,000 ML IV SCH ×4 (02:39→21:43)
[2017-12-08] MEDS: SODIUM CHLORIDE 0.9% FLUSH 10 ML FLUSH IV FLUSH SCH ×2 (09:00→21:00)
[2017-12-08] MEDS: PANTOPRAZOLE SODIUM 40 MG VIAL IV PUSH SCH (12:47)
[2017-12-08] MEDS: POTASSIUM PHOSPHATE/SODIUM PHOSPHATE 250 MG TAB PO SCH ×2 (12:47→18:13)
--- NOTE | 2017-12-08 13:13 | HHI.PR ---
Subjective Remarks Patient denies any complaints, denies muscle cramps or muscle pain. Denies chest pain or shortness of breath. Febrile. Patient states he wants to go home. Objective Vitals Vital Signs Date Time Temp Pulse Resp B/P (MAP) Pulse Ox O2 Delivery O2 Flow Rate FiO2 12/08/17 12:00 97.1 72 17 176/91 (119) 94 12/08/17 09:56 97 12/08/17 08:00 98.1 69 17 142/91 (108) 97 12/08/17 00:00 96.6 71 20 150/93 (112) 97 12/07/17 20:00 98.3 69 20 152/96 (114) 99 12/07/17 17:24 98 21 I/O 12/07/17 12/07/17 12/07/17 12/08/17 12/08/17 12/08/17 07:00 15:00 23:00 07:00 15:00 23:00 Intake Total 1620 ml 1780 ml Balance 1620 ml 1780 ml Intake Oral 620 ml 780 ml IV Total 1000 ml 1000 ml # Voids 5 3 # Bowel Movements 0 Result Diagram: 12/07/17 0458 12/07/17 0458 Imaging Last Impressions Chest X-Ray 12/05/17 0726 Signed Impressions: Service Date/Time: Tuesday, December 05, 2017 07:32 - CONCLUSION: 1. No acute cardiopulmonary disease. Shorty Alexander MD Abdomen/Pelvis CT 12/05/17 0000 Signed Impressions: Service Date/Time: Tuesday, December 05, 2017 09:19 - CONCLUSION: 1. Possible diffuse gastric wall thickening. If there are symptoms referrable to the upper GI tract, may consider direct visualization endoscopy. 2. Otherwise negative noncontrast CT abdomen/pelvis. Chicho Healy MD Objective Remarks GENERAL: NAD, lying in bed SKIN: Warm and dry. HEAD: Normocephalic. EYES: No scleral icterus. No injection or drainage. NECK: Supple, trachea midline. No JVD or lymphadenopathy. CARDIOVASCULAR: Regular rate and rhythm without murmurs, gallops, or rubs. RESPIRATORY: Breath sounds equal bilaterally. No accessory muscle use. GASTROINTESTINAL: Abdomen soft, non-tender, nondistended. MUSCULOSKELETAL: No cyanosis, or edema. BACK: Nontender without obvious deformity. No CVA tenderness. Medications and IVs Current Medications Medications (Trade) Dose Ordered Sig/Kvng Route Start Time Stop Time Status Last Admin Sodium Chloride 1,000 ml @ 150 mls/hr Q6H40M IV 12/05/17 12:00 12/08/17 09:15 (NS Flush) 2 ml UNSCH PRN IV FLUSH 12/05/17 10:15 (NS Flush) 2 ml BID IV FLUSH 12/05/17 21:00 (Zofran Inj) 4 mg Q6H PRN IVP 12/05/17 12:00 (Narcan Inj) 0.4 mg UNSCH PRN IV PUSH 12/05/17 10:15 (Protonix Inj) 40 mg Q24H IV PUSH 12/05/17 12:00 12/08/17 12:47 (Norvasc) 10 mg DAILY PO 12/06/17 09:00 12/08/17 09:15 Lactated Ringer's 1,000 ml @ 30 mls/hr Q24H PRN IV 12/05/17 22:45 12/08/17 22:44 (K-Phos Neutral) 250 mg Q6HR PO 12/08/17 12:00 12/08/17 12:47 A/P Problem List: (1) Acute gastroenteritis ICD Code: K52.9 - Noninfective gastroenteritis and colitis, unspecified Plan: Patient presented with nausea vomiting diarrhea and abdominal pain. Symptoms have improved and resolved. CT of the abdomen and pelvis showed possible gastric wall thickening. The patient is status post EGD were erythematous gastritis was found on the gastric body. There were 2 ulcers observed in the gastric antrum. Biopsies taken, follow-up pathology. There was also observed duodenal inflammation in the bulb and second portion of the duodenum. Diverticulum found on the second part of the duodenum. Continue Protonix 40 mg IV twice daily. Discussed the case with Dr. Tejada. The patient will need an outpatient colonoscopy. Patient cleared from a respiratory standpoint to be discharged. 11/28 DC IV Protonix and switch to p.o. (2) Vomiting and diarrhea ICD Code: R11.10 - Vomiting, unspecified; R19.7 - Diarrhea, unspecified Status: Acute Plan: Resolved. Zofran as needed for nausea. (3) Gastric wall thickening ICD Code: K31.89 - Other diseases of stomach and duodenum; R19.7 - Diarrhea, unspecified Status: Acute Plan: Status post EGD. Management as above. (4) Muscle spasm ICD Code: M62.838 - Other muscle spasm Status: Resolved Plan: Likely secondary to dehydration due to acute gastroenteritis. Resolved. (5) SEAN (acute kidney injury) ICD Code: N17.9 - Acute kidney failure, unspecified Status: Resolved Plan: Secondary to prerenal azotemia due to dehydration secondary to acute gastroenteritis. Acute kidney injury has resolved after IV fluid administration. Continue IV fluids for now. Continue to monitor BUN and creatinine, straight I's and O's and avoid nephrotoxins. (6) Rhabdomyolysis ICD Code: M62.82 - Rhabdomyolysis Status: Acute Plan: Likely secondary to muscle spasms. CK initially 593, trended up to 2030. I will increase the rate of IV normal saline for 100 mL's per hours to 150 mils per hour and continue to monitor CPK. 12/07 CPK still elevated at 1959. Continue IV fluids. I will increase to rate of normal saline up to 1 50 mL/h.. Continue to monitor CPK. 12/08 CPK still elevated at 1437. Explained to the patient that CPK at this level could still provoke some kidney damage. Continue IV fluids at same rate. Monitor CPK. (7) Uncontrolled hypertension ICD Code: I10 - Essential (primary) hypertension Status: Acute Plan: Patient has a past medical history of hypertension however not on any antihypertensive medications as per med rec. I will start the patient on amlodipine 5 mg p.o. daily and clonidine 0.1 mg p.o. every 8 hours as needed for systolic blood pressure more than 160. Assessment and Plan GI prophylaxis: PPI. DVT prophylaxis: SCDs. Discharge Planning Continue to monitor on the medical floor. Discharge pending resolution of rhabdomyolysis. Problem Qualifiers (1) Rhabdomyolysis: Qualified Codes: M62.82 - Rhabdomyolysis Tom Contreras MD Dec 08, 2017 13:13
[2017-12-08] MEDS ORDERED: cloNIDine HCL 0.1 MG TAB PO PRN (13:15)
[2017-12-08] MEDS: amLODIPine BESYLATE 5 MG TAB PO SCH (13:34)
[2017-12-09 00:20] VITALS: BP 133/96; PULSE 69; RESP 20; TEMP 97.1; O2SAT 98
[2017-12-09] MEDS: POTASSIUM PHOSPHATE/SODIUM PHOSPHATE 250 MG TAB PO SCH ×5 (00:49→23:15)
[2017-12-09] MEDS: SODIUM CHLOR 0.9% 1000 ML INJ 1,000 ML IV SCH ×4 (04:35→23:15)
[2017-12-09] MEDS: amLODIPine BESYLATE 5 MG TAB PO SCH (07:47)
[2017-12-09] MEDS: PANTOPRAZOLE SOD 40 MG DELAYED RELEASE TAB PO SCH (07:48)
[2017-12-09] MEDS: SODIUM CHLORIDE 0.9% FLUSH 10 ML FLUSH IV FLUSH SCH ×2 (07:49→21:00)
[2017-12-09 08:00] VITALS: BP 126/96; PULSE 66; RESP 19; TEMP 97.3; O2SAT 97
[2017-12-09 12:00] VITALS: BP 111/87; PULSE 73; RESP 20; TEMP 97.7; O2SAT 97
[2017-12-09 16:00] VITALS: BP 163/93; PULSE 69; RESP 19; TEMP 98.6; O2SAT 96
--- NOTE | 2017-12-09 19:56 | HHI.PR ---
Subjective Remarks Patient has no complaints. Wants to go home cpk improved. Afebrile, denies nausea, vomiting or diarrhea. Objective Vitals Vital Signs Date Time Temp Pulse Resp B/P (MAP) Pulse Ox O2 Delivery O2 Flow Rate FiO2 12/09/17 16:00 98.6 69 19 163/93 (116) 96 12/09/17 12:00 97.7 73 20 111/87 (95) 97 12/09/17 08:00 97.3 66 19 126/96 (106) 97 12/09/17 00:20 97.1 69 20 133/96 (108) 98 12/08/17 20:00 97.7 70 20 138/98 (111) 98 I/O 12/08/17 12/08/17 12/08/17 12/09/17 12/09/17 12/09/17 07:00 15:00 23:00 07:00 15:00 23:00 Intake Total 1780 ml 1500 ml 1780 ml 120 ml 960 ml Output Total 1200 ml Balance 1780 ml 1500 ml 1780 ml 120 ml -240 ml Intake Oral 780 ml 1500 ml 780 ml 120 ml 960 ml IV Total 1000 ml 1000 ml Output Urine Total 1200 ml # Voids 3 8 3 # Bowel Movements 1 0 Result Diagram: 12/07/17 0458 12/07/17 0458 Imaging Last Impressions Chest X-Ray 12/05/17 0726 Signed Impressions: Service Date/Time: Tuesday, December 05, 2017 07:32 - CONCLUSION: 1. No acute cardiopulmonary disease. Shorty Alexander MD Abdomen/Pelvis CT 12/05/17 0000 Signed Impressions: Service Date/Time: Tuesday, December 05, 2017 09:19 - CONCLUSION: 1. Possible diffuse gastric wall thickening. If there are symptoms referrable to the upper GI tract, may consider direct visualization endoscopy. 2. Otherwise negative noncontrast CT abdomen/pelvis. Chicho Healy MD Objective Remarks GENERAL: NAD, lying in bed SKIN: Warm and dry. HEAD: Normocephalic. EYES: No scleral icterus. No injection or drainage. NECK: Supple, trachea midline. No JVD or lymphadenopathy. CARDIOVASCULAR: Regular rate and rhythm without murmurs, gallops, or rubs. RESPIRATORY: Breath sounds equal bilaterally. No accessory muscle use. GASTROINTESTINAL: Abdomen soft, non-tender, nondistended. MUSCULOSKELETAL: No cyanosis, or edema. BACK: Nontender without obvious deformity. No CVA tenderness. Medications and IVs Current Medications Medications (Trade) Dose Ordered Sig/Kvng Route Start Time Stop Time Status Last Admin Sodium Chloride 1,000 ml @ 150 mls/hr Q6H40M IV 12/05/17 12:00 12/09/17 17:42 (NS Flush) 2 ml UNSCH PRN IV FLUSH 12/05/17 10:15 (NS Flush) 2 ml BID IV FLUSH 12/05/17 21:00 (Zofran Inj) 4 mg Q6H PRN IVP 12/05/17 12:00 (Narcan Inj) 0.4 mg UNSCH PRN IV PUSH 12/05/17 10:15 (K-Phos Neutral) 250 mg Q6HR PO 12/08/17 12:00 12/09/17 17:41 (Catapres) 0.1 mg Q6H PRN PO 12/08/17 13:15 (Norvasc) 5 mg DAILY PO 12/08/17 13:15 12/09/17 07:47 (Protonix) 40 mg DAILY PO 12/09/17 09:00 12/09/17 07:48 A/P Problem List: (1) Acute gastroenteritis ICD Code: K52.9 - Noninfective gastroenteritis and colitis, unspecified Plan: Patient presented with nausea vomiting diarrhea and abdominal pain. Symptoms have improved and resolved. CT of the abdomen and pelvis showed possible gastric wall thickening. The patient is status post EGD were erythematous gastritis was found on the gastric body. There were 2 ulcers observed in the gastric antrum. Biopsies taken, follow-up pathology. There was also observed duodenal inflammation in the bulb and second portion of the duodenum. Diverticulum found on the second part of the duodenum. Continue Protonix 40 mg IV twice daily. Discussed the case with Dr. Tejada. The patient will need an outpatient colonoscopy. Patient cleared from a respiratory standpoint to be discharged. 11/28 DC IV Protonix and switch to p.o. (2) Vomiting and diarrhea ICD Code: R11.10 - Vomiting, unspecified; R19.7 - Diarrhea, unspecified Status: Acute (3) Gastric wall thickening ICD Code: K31.89 - Other diseases of stomach and duodenum; R19.7 - Diarrhea, unspecified Status: Acute Plan: Status post EGD. Management as above. (4) Muscle spasm ICD Code: M62.838 - Other muscle spasm Status: Resolved Plan: Likely secondary to dehydration due to acute gastroenteritis. Resolved. (5) SEAN (acute kidney injury) ICD Code: N17.9 - Acute kidney failure, unspecified Status: Resolved Plan: Secondary to prerenal azotemia due to dehydration secondary to acute gastroenteritis. Acute kidney injury has resolved after IV fluid administration. Continue IV fluids for now. Continue to monitor BUN and creatinine, straight I's and O's and avoid nephrotoxins. (6) Rhabdomyolysis ICD Code: M62.82 - Rhabdomyolysis Status: Acute Plan: Likely secondary to muscle spasms. CK initially 593, trended up to 2030. I will increase the rate of IV normal saline for 100 mL's per hours to 150 mils per hour and continue to monitor CPK. 12/07 CPK still elevated at 1959. Continue IV fluids. I will increase to rate of normal saline up to 1 50 mL/h.. Continue to monitor CPK. 12/08 CPK still elevated at 1437. Explained to the patient that CPK at this level could still provoke some kidney damage. Continue IV fluids at same rate. Monitor CPK. 12/09 CPK trending down at 970 today. Continue IV fluids. (7) Uncontrolled hypertension ICD Code: I10 - Essential (primary) hypertension Status: Acute Plan: Patient has a past medical history of hypertension however not on any antihypertensive medications as per med rec. I will start the patient on amlodipine 5 mg p.o. daily and clonidine 0.1 mg p.o. every 8 hours as needed for systolic blood pressure more than 160. Blood pressure with improved control. Continue amlodipine 5 mg by mouth daily and clonidine 0.1 mg by mouth every 8 hours. (8) Positive blood culture ICD Code: R78.81 - Bacteremia Plan: Aerobic blood culture 1 out of 4 sets is growing gram-positive cocci - Will await ID Suspect there is a contamination since patient does not have any signs of infection. UA negative Assessment and Plan GI prophylaxis: PPI. DVT prophylaxis: SCDs. Discharge Planning DC pending blood culture results. Problem Qualifiers (1) Rhabdomyolysis: Qualified Codes: M62.82 - Rhabdomyolysis Tom Contreras MD Dec 09, 2017 19:56
[2017-12-09 20:00] VITALS: BP 139/88; PULSE 80; RESP 18; TEMP 97.4; O2SAT 97
[2017-12-09 21:41] VITALS: O2SAT 97
[2017-12-10] VITALS: BP 147/90; PULSE 82; RESP 18; TEMP 99.5; O2SAT 96
[2017-12-10] MEDS: POTASSIUM PHOSPHATE/SODIUM PHOSPHATE 250 MG TAB PO SCH (05:35)
[2017-12-10 08:00] VITALS: BP 143/84; PULSE 79; RESP 20; TEMP 98; O2SAT 96
[2017-12-10] MEDS: amLODIPine BESYLATE 5 MG TAB PO SCH (08:09)
[2017-12-10] MEDS: PANTOPRAZOLE SOD 40 MG DELAYED RELEASE TAB PO SCH (08:09)
[2017-12-10] MEDS: SODIUM CHLORIDE 0.9% FLUSH 10 ML FLUSH IV FLUSH SCH (08:10)
[2017-12-10] MEDS ORDERED: AMLO5 PO (10:25)
--- NOTE | 2017-12-10 10:27 | HHI.DCPOC ---
Discharge Care Plan Diagnosis: (1) Uncontrolled hypertension (2) SEAN (acute kidney injury) (3) Rhabdomyolysis (4) Muscle spasm (5) Acute gastroenteritis (6) Gastric wall thickening (7) Vomiting and diarrhea (8) Positive blood culture Goals to Promote Your Health * To prevent worsening of your condition and complications * To maintain your health at the optimal level Directions to Meet Your Goals Take your medications as prescribed Follow your dietary instruction Follow activity as directed Keep your appointments as scheduled Take your immunizations and boosters as scheduled If your symptoms worsen call your PCP, if no PCP go to Urgent Care Center or Emergency Room Smoking is Dangerous to Your Health. Avoid second hand smoke Call the 24-hour hour crisis hotline for domestic abuse at Tom Contreras MD Dec 10, 2017 10:27
--- NOTE | 2017-12-10 10:28 | HHI.DS ---
Discharge Summary Admission Date Dec 05, 2017 at 10:15 Discharge Date: Dec 10, 2017 Admitting Diagnosis vomiting, diarrhea, lactic acidosis (1) Acute gastroenteritis ICD Code: K52.9 - Noninfective gastroenteritis and colitis, unspecified (2) Vomiting and diarrhea ICD Code: R11.10 - Vomiting, unspecified; R19.7 - Diarrhea, unspecified Status: Acute (3) Gastric wall thickening ICD Code: K31.89 - Other diseases of stomach and duodenum; R19.7 - Diarrhea, unspecified Status: Acute (4) Muscle spasm ICD Code: M62.838 - Other muscle spasm Status: Resolved (5) SEAN (acute kidney injury) ICD Code: N17.9 - Acute kidney failure, unspecified Status: Resolved (6) Rhabdomyolysis ICD Code: M62.82 - Rhabdomyolysis Status: Acute (7) Uncontrolled hypertension ICD Code: I10 - Essential (primary) hypertension Status: Acute (8) Positive blood culture ICD Code: R78.81 - Bacteremia Procedures none Brief History - From Admission spasms this mornign diarrhea abotu 4-5x this am vomited 3x adominal pain is all over no black or red was sweatign did not measure no sick contact no outside food about 3 weeks ago, had flu- went to his doctor and got some prescription - 6 packs 2 pills then 1 pill for next 4 days did have diarrhea then as well frequent urination then [facility] and nova meds finsihed about a week ago have not used heavy weights or so past 6 months CBC/BMP: 12/07/17 0458 12/07/17 0458 Significant Findings Laboratory Tests Test 12/08/17 10:49 12/09/17 08:16 Total Creatine Kinase 1437 U/L (39-308) 970 U/L (39-308) Creatine Kinase MB 5.2 NG/ML (0.5-3.6) 4.0 NG/ML (0.5-3.6) Imaging Last Impressions Chest X-Ray 12/05/17 1922 Signed Impressions: Service Date/Time: Tuesday, December 05, 2017 07:32 - CONCLUSION: 1. No acute cardiopulmonary disease. Shorty Alexander MD Abdomen/Pelvis CT 12/05/17 0000 Signed Impressions: Service Date/Time: Tuesday, December 05, 2017 09:19 - CONCLUSION: 1. Possible diffuse gastric wall thickening. If there are symptoms referrable to the upper GI tract, may consider direct visualization endoscopy. 2. Otherwise negative noncontrast CT abdomen/pelvis. Chicho Healy MD PE at Discharge GENERAL: NAD, lying in bed SKIN: Warm and dry. HEAD: Normocephalic. EYES: No scleral icterus. No injection or drainage. NECK: Supple, trachea midline. No JVD or lymphadenopathy. CARDIOVASCULAR: Regular rate and rhythm without murmurs, gallops, or rubs. RESPIRATORY: Breath sounds equal bilaterally. No accessory muscle use. GASTROINTESTINAL: Abdomen soft, non-tender, nondistended. MUSCULOSKELETAL: No cyanosis, or edema. BACK: Nontender without obvious deformity. No CVA tenderness. Pt Condition on Discharge: Stable Discharge Disposition: Discharge Home Discharge Time: <= 30 minutes Discharge Instructions DIET: Follow Instructions for: Heart Healthy Diet Activities you can perform: Regular-No Restrictions Follow up Referrals: PCP Follow-up - 2 Weeks New Medications: Amlodipine (Norvasc) 5 Mg Tab 5 MG PO DAILY for Blood Pressure Management, #30 TAB Continued Medications: Omeprazole (Omeprazole) 20 Mg Tab 20 MG PO DAILY, #30 TAB 0 Refills [daron-plex] () 1 TAB PO DAILY [yrn-shea] () 1 TAB PO DAILY Discontinued Medications: Cyclobenzaprine (Flexeril) 5 Mg Tab 5 MG PO TID for Muscle Spasm, #90 TAB 0 Refills Tom Contreras MD Dec 10, 2017 10:28
== END 2017-12-10 11:13 | disposition home or self-care (01) | DRG 392 ==
LOC: NEPE 07:12 → NEDA 10:15 → N07A 14:24
PROVIDERS: ADMIT Hospitalist; ATTEND Hospitalist
PROC: 0DB78ZX Excision of Stomach, Pylorus, Via Natural or Artificial Opening Endoscopic, Diagnostic (ICD-10-PCS; principal; 2017-12-06 10:04)
DX: K52.9 Noninfective gastroenteritis and colitis, unspecified (principal); N17.9 Acute kidney failure, unspecified; E87.2 Acidosis; M62.82 Rhabdomyolysis; I10 Essential (primary) hypertension; K21.9 Gastro-esophageal reflux disease without esophagitis; M62.838 Other muscle spasm; E86.0 Dehydration; K25.9 Gastric ulcer, unspecified as acute or chronic, without hemorrhage or perforation; K29.70 Gastritis, unspecified, without bleeding; K57.10 Diverticulosis of small intestine without perforation or abscess without bleeding; Z87.891 Personal history of nicotine dependence
CPT/HCPCS: 71045; 74176; 80053; 80307; 81001; 82550; 82552; 83605; 83690; 83735; 84100; 84484; 85025; 85610; 85730; 87040; 87205; 87804; 88305; 88312; 93005; 96361; 96365; 96375; C9113; J2405; J2543; J3475; J3480; J7030

== ENCOUNTER 2018-02-22 17:22 | Emergency (ER) | payer MEDICARE, OTHER ==
[~2018-02-22] VITALS: Ht 172.7 cm; Wt 86.0 kg
[~2018-02-22 17:22] MED LIST changes: +AMLO5 PO; +OMEP20TA93 PO; -PRIL20CA PO; +[UNRECOGNIZED DRUG - CODE] PO; +[UNRECOGNIZED DRUG - OTHER] PO
[2018-02-22 17:28] VITALS: BP 133/79; PULSE 72; RESP 18; TEMP 98.8; O2SAT 100
[2018-02-22 18:22] LABS: AUTOMATED NEUTROPHIL # 2.8 TH/MM3 (1.8-7.7); BASOPHIL # 0.1 TH/MM3 (0-0.2); BASOPHIL % 1.4 % (0.0-2.0); EOSINOPHIL # 0.1 TH/MM3 (0-0.4); EOSINOPHIL % 2.2 % (0.0-4.0); HEMATOCRIT 40.9 % (39.0-51.0); HEMOGLOBIN 13.2 GM/DL (13.0-17.0); LYMPH % 40.1 % (9.0-44.0); LYMPHOCYTE # 2.7 TH/MM3 (1.0-4.8); MEAN CELL VOLUME 86.4 FL (80.0-100.0); MEAN CORPUSCULAR HEMOGLOBIN 27.8 PG (27.0-34.0); MEAN CORPUSCULAR HGB CONC 32.2 % (32.0-36.0); MEAN PLATELET VOLUME 9.7 FL (7.0-11.0); MONO % 13.3 % (0.0-8.0); MONOCYTE # 0.9 TH/MM3 (0-0.9); PLATELET COUNT 249 TH/MM3 (150-450); RED BLOOD COUNT 4.74 MIL/MM3 (4.50-5.90); RED CELL DISTRIBUTION WIDTH 16.3 % (11.6-17.2); WHITE BLOOD COUNT 6.6 TH/MM3 (4.0-11.0)
[2018-02-22 18:49] LABS: ALBUMIN 3.5 GM/DL (3.4-5.0); BICARBONATE 25.8 MEQ/L (21.0-32.0); CALCIUM 7.3 MG/DL (8.5-10.1); CREATININE 0.89 MG/DL (0.60-1.30); TOTAL BILIRUBIN ADULT 0.2 MG/DL (0.2-1.0); TOTAL PROTEIN 7.4 GM/DL (6.4-8.2)
[2018-02-22 18:56] VITALS: BP 154/96; PULSE 72; RESP 16; O2SAT 100
[2018-02-22 18:57] LABS: CALCIUM-PROTEIN CORRECTED 7.2 MG/DL (8.5-10.1)
[2018-02-22] MEDS ORDERED: CALCIUM CARBONATE 1.25 GM (CA 500 MG) TAB PO ONE (19:00)
[2018-02-22] MEDS ORDERED: CALCIUM CHLORIDE INJ 1 GM in SODIUM CHLORIDE 0.9% INJ 90 ML IV ONE (19:00)
--- NOTE | 2018-02-22 19:01 | PD ---
HPI Chief Complaint: Abnormal Results Time Seen by Provider: 18:50 Travel History International Travel<30 days: No Contact w/Intl Traveler<30days: No Traveled to known affect area: No History of Present Illness HPI 68-year-old male presents for evaluation of abnormal lab work. He reports that he had routine blood work at [facility] yesterday. He was called today by a physician with [facility] and told that his calcium levels and magnesium levels were low and was told to come to the emergency room. He was not informed what the numbers were. He reports that he feels "great." He is asymptomatic. He denies any numbness, tingling, weakness, muscle cramps, muscle spasms, chest pain, shortness of breath, abdominal pain, nausea vomiting, diarrhea or constipation, palpitations. He denies any significant past medical history. He has no other complaints at this time. [facility] Past Medical History Autoimmune Disease: No Cardiovascular Problems: Yes (history of HTN) Diabetes: No Diminished Hearing: No Endocrine: No GERD: Yes Hypertension: Yes Immune Disorder: No Musculoskeletal: No Neurologic: No Sickle Cell Disease: No Thyroid Disease: No Past Surgical History Genitourinary Surgery: Yes Social History Alcohol Use: Yes ([facility]) Tobacco Use: No Substance Use: No Allergies-Medications (Allergen,Severity, Reaction): Coded Allergies: No Known Allergies (Verified Allergy, Unknown, 04/20/08) Reported Meds & Prescriptions Reported Meds & Active Scripts Active Calcium Carbonate 1,500 Mg Tab 1,500 Mg PO BID 7 Days 1,500 mg calcium carbonate (600 mg elemental calcium) Magnesium Oxide 400 Mg Tab 400 Mg PO DAILY 7 Days Norvasc (Amlodipine Besylate) 5 Mg Tab 5 Mg PO DAILY Reported Omeprazole 20 Mg Tab 20 Mg PO DAILY [yrn-shea] 1 Tab PO DAILY [daron-plex] 1 Tab PO DAILY Review of Systems Except as stated in HPI: all other systems reviewed are Neg Physical Exam Narrative GENERAL: Well-developed well-nourished male in no acute distress SKIN: Warm and dry. HEAD: Atraumatic. Normocephalic. EYES: Pupils equal and round. No scleral icterus. No injection or drainage. ENT: No nasal bleeding or discharge. Mucous membranes pink and moist. NECK: Trachea midline. No JVD. CARDIOVASCULAR: Regular rate and rhythm. No murmur appreciated. RESPIRATORY: No accessory muscle use. Clear to auscultation. Breath sounds equal bilaterally. GASTROINTESTINAL: Abdomen soft, non-tender, nondistended. Hepatic and splenic margins not palpable. MUSCULOSKELETAL: No obvious deformities. No clubbing. No cyanosis. No edema. NEUROLOGICAL: Awake and alert. No obvious cranial nerve deficits. Motor grossly within normal limits. Normal speech. Negative chovsteks. PSYCHIATRIC: Appropriate mood and affect; insight and judgment normal. Data Data Last Documented VS Vital Signs Date Time Temp Pulse Resp B/P (MAP) Pulse Ox O2 Delivery O2 Flow Rate FiO2 02/22/18 22:37 02/22/18 21:16 81 16 100 Room Air 02/22/18 17:28 98.8 Orders Orders Complete Blood Count With Diff (02/22/18 17:30) Comprehensive Metabolic Panel (02/22/18 17:30) Magnesium (Mg) (02/22/18 18:50) Electrocardiogram (02/22/18 ) Calcium Chloride Inj (Calcium Chloride I (02/22/18 19:00) Calcium Carbonate (Oscal) (02/22/18 19:00) Magnesium Sulfate 1 Gm Premix (Magnesium (02/22/18 19:30) Ed Discharge Order (02/22/18 22:26) Labs Laboratory Tests Test 02/22/18 17:38 02/22/18 17:40 White Blood Count 6.6 TH/MM3 Red Blood Count 4.74 MIL/MM3 Hemoglobin 13.2 GM/DL Hematocrit 40.9 % Mean Corpuscular Volume 86.4 FL Mean Corpuscular Hemoglobin 27.8 PG Mean Corpuscular Hemoglobin Concent 32.2 % Red Cell Distribution Width 16.3 % Platelet Count 249 TH/MM3 Mean Platelet Volume 9.7 FL Neutrophils (%) (Auto) 43.0 % Lymphocytes (%) (Auto) 40.1 % Monocytes (%) (Auto) 13.3 % Eosinophils (%) (Auto) 2.2 % Basophils (%) (Auto) 1.4 % Neutrophils # (Auto) 2.8 TH/MM3 Lymphocytes # (Auto) 2.7 TH/MM3 Monocytes # (Auto) 0.9 TH/MM3 Eosinophils # (Auto) 0.1 TH/MM3 Basophils # (Auto) 0.1 TH/MM3 CBC Comment DIFF FINAL Differential Comment Blood Urea Nitrogen 10 MG/DL Creatinine 0.89 MG/DL Random Glucose 75 MG/DL Total Protein 7.4 GM/DL Albumin 3.5 GM/DL Calcium Level 7.3 MG/DL Alkaline Phosphatase 46 U/L Aspartate Amino Transf (AST/SGOT) 24 U/L Alanine Aminotransferase (ALT/SGPT) 34 U/L Total Bilirubin 0.2 MG/DL Sodium Level 143 MEQ/L Potassium Level 3.8 MEQ/L Chloride Level 108 MEQ/L Carbon Dioxide Level 25.8 MEQ/L Anion Gap 9 MEQ/L Estimat Glomerular Filtration Rate 104 ML/MIN Protein Corrected Calcium 7.2 MG/DL Magnesium Level 0.6 MG/DL [facility] Medical Decision Making Medical Screen Exam Complete: Yes Emergency Medical Condition: Yes Medical Record Reviewed: Yes Differential Diagnosis Lab error, hypocalcemia, hypomagnesemia Narrative Course CBC, CMP, magnesium, EKG ordered. CBC unremarkable. CMP reveals protein corrected calcium 7.2, 1 g calcium chloride IV and 500 mg oral calcium initiated. Magnesium is 0.6, 2 g magnesium administered. EKG reveals sinus rhythm with occasional PVCs. Normal intervals. At this point time as the patient is asymptomatic, the plan is to discharge him to follow-up with his primary care physician. He will be given prescriptions for 1 week supply of magnesium and calcium. Diagnosis Primary Impression: Hypomagnesemia Additional Impression: Hypocalcemia Additional Instructions: Medication as prescribed. Follow-up next week with primary care physician for repeat lab work. Return for any acutely new or worsening symptoms. Med/Other Pt SpecificInfo: Prescription(s) given Scripts Calcium Carbonate (Calcium Carbonate) 1,500 Mg Tab 1500 MG PO BID for Calcium Supplement for 7 Days, TAB 0 Refills 1,500 mg calcium carbonate (600 mg elemental calcium) Prov: Gómez Powell MD 02/22/18 Magnesium Oxide (Magnesium Oxide) 400 Mg Tab 400 MG PO DAILY for Nutritional Supplement for 7 Days, #7 TAB 0 Refills Prov: Gómez Powell MD 02/22/18 Disposition: 01 DISCHARGE HOME Condition: Stable James Lester February 22, 2018 19:01
[2018-02-22] MEDS ORDERED: MAGN400T2 PO (19:35)
[2018-02-22] MEDS ORDERED: CALC600T4 PO (19:35)
[2018-02-22] MEDS: MAGNESIUM SULFATE 1 GM PREMIX 100 ML IV SCH ×2 (20:08→21:15)
[2018-02-22 21:16] VITALS: BP 138/81; PULSE 81; RESP 16; O2SAT 100
--- NOTE | 2018-02-24 08:38 | EKG ---
Date Performed: 02/22/2018 Time Performed: 19:14:19 PTAGE: 68 years EKG: Sinus rhythm WITH FREQUENT VENTRICULAR PREMATURE COMPLEXES ABNORMAL RHYTHM ECG PREVIOUS TRACING : 12/05/2017 21.37 DOCTOR: Aurora Ortega Interpretating Date/Time 02/24/2018 08:34:49
== END 2018-02-22 22:49 | disposition home or self-care (01) ==
LOC: NEPE 17:22
DX: E83.42 Hypomagnesemia (principal); E83.51 Hypocalcemia; I49.3 Ventricular premature depolarization; I10 Essential (primary) hypertension; K21.9 Gastro-esophageal reflux disease without esophagitis; R94.31 Abnormal electrocardiogram [ECG] [EKG]; Z79.899 Other long term (current) drug therapy
CPT/HCPCS: 80053; 83735; 85025; 93005; 96365; 96375; 99284; J3475

== ENCOUNTER 2018-03-23 06:20 | Inpatient (IN) | payer OTHER, MEDICARE ==
[~2018-03-23] VITALS: Ht 172.7 cm; Wt 80.0 kg
[2018-03-23] VITALS (7 sets, daily range): BP systolic 113–124; BP diastolic 68–96; PULSE 74–138; RESP 13–18; TEMP 97.6–98.5; O2SAT 96–100
[~2018-03-23 06:20] MED LIST changes: +CALC600T4 PO; +MAGN400T2 PO
[2018-03-23] MEDS ORDERED: SODIUM CHLOR 0.9% 1000 ML INJ 1,000 ML IV SCH (06:57)
[2018-03-23] MEDS ORDERED: PANTOPRAZOLE SODIUM 40 MG VIAL IV PUSH ONE (07:00)
[2018-03-23] MEDS ORDERED: DICYCLOMINE HCL 20 MG/2 ML VIAL IM ONE (07:00)
[2018-03-23] MEDS ORDERED: SODIUM CHLORIDE 0.9% FLUSH 10 ML FLUSH IV FLUSH PRN ×2 (07:00→09:30)
[2018-03-23] MEDS ORDERED: METOCLOPRAMIDE HCL 10 MG/2 ML VIAL IV PUSH ONE (07:00)
[2018-03-23] MEDS ORDERED: MORPHINE SULFATE 4 MG/ML INJ IV PUSH ONE (07:00)
--- NOTE | 2018-03-23 07:07 | PD ---
HPI Chief Complaint: Chest Pain Time Seen by Provider: 06:52 Travel History International Travel<30 days: No Contact w/Intl Traveler<30days: No Traveled to known affect area: No History of Present Illness HPI The patient is a 68-year-old -Algerian male who presents to the emergency department via EMS for nausea, vomiting, diarrhea, and abdominal pain. The patient states he developed symptoms 2 days ago with vomiting which has been persistent. He then developed epigastric to periumbilical abdominal pain that radiates to the upper quadrants bilaterally. He also notes diarrhea several times overnight which she describes as loose, watery, brown, without any visible blood. The patient states he has similar symptoms several months ago when he was admitted to the hospital. He has undergone previous endoscopy which revealed ulcers per his report. He denies any history of pancreatitis. He denies any fever or chills, however, does note he has been sweating. He does note he has some lower bilateral chest pain radiating from the abdomen but denies any upper chest pain. He does note mild shortness of breath secondary to the abdominal pain. He denies any productive cough, dysuria, frequency, or urgency. Symptoms are moderate. PFSH Past Medical History Autoimmune Disease: No Cardiovascular Problems: Yes (HTN) Diabetes: No Diminished Hearing: No Endocrine: No GERD: Yes Hypertension: Yes Immune Disorder: No Musculoskeletal: No Neurologic: No Sickle Cell Disease: No Thyroid Disease: No Past Surgical History Genitourinary Surgery: Yes Social History Alcohol Use: Yes (OCC) Tobacco Use: No Substance Use: No Allergies-Medications (Allergen,Severity, Reaction): Coded Allergies: No Known Allergies (Verified Allergy, Unknown, 04/20/08) Reported Meds & Prescriptions Reported Meds & Active Scripts Active Calcium Carbonate 1,500 Mg Tab 1,500 Mg PO BID 7 Days 1,500 mg calcium carbonate (600 mg elemental calcium) Magnesium Oxide 400 Mg Tab 400 Mg PO DAILY 7 Days Norvasc (Amlodipine Besylate) 5 Mg Tab 5 Mg PO DAILY Reported Omeprazole 20 Mg Tab 20 Mg PO DAILY [yrn-shea] 1 Tab PO DAILY [daron-plex] 1 Tab PO DAILY Review of Systems Except as stated in HPI: all other systems reviewed are Neg General / Constitutional: No: Fever, Chills Cardiovascular: Positive: Chest Pain or Discomfort, Diaphoresis Respiratory: Positive: Shortness of Breath Gastrointestinal: Positive: Nausea, Vomiting, Diarrhea, Abdominal Pain Genitourinary: No: Dysuria Musculoskeletal: No: Weakness Physical Exam Narrative GENERAL: Awake, alert, pleasant 68-year-old male who appears his stated age and appears in moderate discomfort. SKIN: Focused skin assessment warm/dry. HEAD: Atraumatic. Normocephalic. EYES: Pupils equal and round. No scleral icterus. No injection or drainage. ENT: No nasal bleeding or discharge. Dry mucous membranes. NECK: Trachea midline. No JVD. CARDIOVASCULAR: Regular, tachycardic with a heart rate of 135. RESPIRATORY: No accessory muscle use. Clear to auscultation. Breath sounds equal bilaterally. GASTROINTESTINAL: Abdomen soft, mild epigastric tenderness, no guarding or rigidity. MUSCULOSKELETAL: No obvious deformities. No clubbing. No cyanosis. No edema. NEUROLOGICAL: Awake and alert. No obvious cranial nerve deficits. Motor grossly within normal limits. Normal speech. PSYCHIATRIC: Appropriate mood and affect; insight and judgment normal. Data Data Last Documented VS Vital Signs Date Time Temp Pulse Resp B/P (MAP) Pulse Ox O2 Delivery O2 Flow Rate FiO2 03/23/18 08:59 100 16 116/86 (96) 96 Room Air 03/23/18 07:34 97.8 2.00 Orders Orders Complete Blood Count With Diff (03/23/18 06:57) Comprehensive Metabolic Panel (03/23/18 06:57) Lipase (03/23/18 06:57) Lactic Acid (03/23/18 06:57) Prothrombin Time / Inr (Pt) (03/23/18 06:57) Urinalysis - C+S If Indicated (03/23/18 06:57) Iv Access Insert/Monitor (03/23/18 06:57) Ecg Monitoring (03/23/18 06:57) Oximetry (03/23/18 06:57) Morphine Inj (Morphine Inj) (03/23/18 07:00) Sodium Chlor 0.9% 1000 Ml Inj (Ns 1000 M (03/23/18 06:57) Sodium Chloride 0.9% Flush (Ns Flush) (03/23/18 07:00) Electrocardiogram (03/23/18 06:57) Chest, Single Ap (03/23/18 06:57) Dicyclomine Inj (Bentyl Inj) (03/23/18 07:00) Creatine Kinase (Cpk) (03/23/18 06:57) Troponin I (03/23/18 06:57) Metoclopramide Inj (Reglan Inj) (03/23/18 07:00) Pantoprazole Inj (Protonix Inj) (03/23/18 07:00) Sodium Chlor 0.9% 1000 Ml Inj (Ns 1000 M (03/23/18 07:30) Potassium Chlor 20 Meq Premix (Kcl 20 Me (03/23/18 08:15) Magnesium (Mg) (03/23/18 08:10) Ct Abd/Pel W/O Iv Contrast (03/23/18 ) Sodium Chlor 0.9% 1000 Ml Inj (Ns 1000 M (03/23/18 08:30) Lactic Acid (03/23/18 11:10) Admit Order (Ed Use Only) (03/23/18 09:24) Labs Laboratory Tests Test 03/23/18 07:10 White Blood Count 14.2 TH/MM3 Red Blood Count 6.35 MIL/MM3 Hemoglobin 17.7 GM/DL Hematocrit 53.0 % Mean Corpuscular Volume 83.4 FL Mean Corpuscular Hemoglobin 27.9 PG Mean Corpuscular Hemoglobin Concent 33.5 % Red Cell Distribution Width 16.6 % Platelet Count 304 TH/MM3 Mean Platelet Volume 9.1 FL Neutrophils (%) (Auto) 87.9 % Lymphocytes (%) (Auto) 6.0 % Monocytes (%) (Auto) 5.8 % Eosinophils (%) (Auto) 0.0 % Basophils (%) (Auto) 0.3 % Neutrophils # (Auto) 12.4 TH/MM3 Lymphocytes # (Auto) 0.9 TH/MM3 Monocytes # (Auto) 0.8 TH/MM3 Eosinophils # (Auto) 0.0 TH/MM3 Basophils # (Auto) 0.0 TH/MM3 CBC Comment DIFF FINAL Differential Comment Prothrombin Time 13.0 SEC Prothromb Time International Ratio 1.3 RATIO Blood Urea Nitrogen 33 MG/DL Creatinine 4.79 MG/DL Random Glucose 219 MG/DL Total Protein 9.7 GM/DL Albumin 4.7 GM/DL Calcium Level 10.8 MG/DL Alkaline Phosphatase 72 U/L Aspartate Amino Transf (AST/SGOT) 27 U/L Alanine Aminotransferase (ALT/SGPT) 62 U/L Total Bilirubin 0.4 MG/DL Sodium Level 134 MEQ/L Potassium Level 2.8 MEQ/L Chloride Level 82 MEQ/L Carbon Dioxide Level 31.3 MEQ/L Anion Gap 21 MEQ/L Estimat Glomerular Filtration Rate 15 ML/MIN Lactic Acid Level 3.9 mmol/L Magnesium Level 0.9 MG/DL Total Creatine Kinase 168 U/L Troponin I LESS THAN 0.02 NG/ML Lipase 207 U/L MDM Medical Decision Making Medical Screen Exam Complete: Yes Emergency Medical Condition: Yes Medical Record Reviewed: Yes Interpretation(s) EKG reveals sinus tachycardia with a heart rate of 138. Nonspecific ST and T- wave changes. Laboratory Tests Test 03/23/18 07:10 White Blood Count 14.2 TH/MM3 Red Blood Count 6.35 MIL/MM3 Hemoglobin 17.7 GM/DL Hematocrit 53.0 % Mean Corpuscular Volume 83.4 FL Mean Corpuscular Hemoglobin 27.9 PG Mean Corpuscular Hemoglobin Concent 33.5 % Red Cell Distribution Width 16.6 % Platelet Count 304 TH/MM3 Mean Platelet Volume 9.1 FL Neutrophils (%) (Auto) 87.9 % Lymphocytes (%) (Auto) 6.0 % Monocytes (%) (Auto) 5.8 % Eosinophils (%) (Auto) 0.0 % Basophils (%) (Auto) 0.3 % Neutrophils # (Auto) 12.4 TH/MM3 Lymphocytes # (Auto) 0.9 TH/MM3 Monocytes # (Auto) 0.8 TH/MM3 Eosinophils # (Auto) 0.0 TH/MM3 Basophils # (Auto) 0.0 TH/MM3 CBC Comment DIFF FINAL Differential Comment Prothrombin Time 13.0 SEC Prothromb Time International Ratio 1.3 RATIO Blood Urea Nitrogen 33 MG/DL Creatinine 4.79 MG/DL Random Glucose 219 MG/DL Total Protein 9.7 GM/DL Albumin 4.7 GM/DL Calcium Level 10.8 MG/DL Alkaline Phosphatase 72 U/L Aspartate Amino Transf (AST/SGOT) 27 U/L Alanine Aminotransferase (ALT/SGPT) 62 U/L Total Bilirubin 0.4 MG/DL Sodium Level 134 MEQ/L Potassium Level 2.8 MEQ/L Chloride Level 82 MEQ/L Carbon Dioxide Level 31.3 MEQ/L Anion Gap 21 MEQ/L Estimat Glomerular Filtration Rate 15 ML/MIN Lactic Acid Level 3.9 mmol/L Total Creatine Kinase 168 U/L Troponin I LESS THAN 0.02 NG/ML Lipase 207 U/L Differential Diagnosis Differential diagnosis includes gastritis, peptic ulcer disease, perforated viscus, pancreatitis, gastroenteritis, enteritis, colitis, dehydration, acute kidney injury, electrolyte abnormality, dissection, atypical ACS. Narrative Course IV was established, labs were drawn and sent, and the patient was placed on cardiac telemetry monitoring and continuous pulse oximetry monitoring. EKG was ordered and interpreted. The patient was administered IV fluids, morphine, Bentyl, Reglan, and Protonix. CT of the abdomen and pelvis with IV contrast was obtained. Stat chest x-ray was obtained to rule out perforated viscus. The patient's white count is elevated at 14.2, hemoglobin is elevated at 17.7 with elevated hematocrit, most likely secondary to hemoconcentration from dehydration. The patient's creatinine was elevated greater than 4, baseline on previous MR was 0.89. Patient's potassium is also low at 2.8. The patient's potassium most likely is low secondary to persistent nausea and vomiting resulting in subsequent hemoconcentration, dehydration, and acute renal failure. The patient was ordered IV potassium rate placement as well as 1/3 L of IV fluids. CT of the abdomen and pelvis with IV contrast was changed to CT of the abdomen and pelvis without IV contrast. The patient will be admitted. Physician Communication Physician Communication The [facility] [employer] I discussed the patient with Dr. Pimentel who agrees with admission. Diagnosis Primary Impression: Acute renal failure Qualified Codes: N17.9 - Acute kidney failure, unspecified Additional Impressions: Hypokalemia Dehydration Admitting Information Admitting Physician Requests: Admit Condition: Stable Tima Fleming MD Mar 23, 2018 07:07
[2018-03-23 07:16] LABS: AUTOMATED NEUTROPHIL # 12.4 TH/MM3 (1.8-7.7); BASOPHIL % 0.3 % (0.0-2.0); HEMOGLOBIN 17.7 GM/DL (13.0-17.0); LYMPHOCYTE # 0.9 TH/MM3 (1.0-4.8); MEAN CELL VOLUME 83.4 FL (80.0-100.0); MEAN CORPUSCULAR HEMOGLOBIN 27.9 PG (27.0-34.0); MEAN CORPUSCULAR HGB CONC 33.5 % (32.0-36.0); MEAN PLATELET VOLUME 9.1 FL (7.0-11.0); MONO % 5.8 % (0.0-8.0); MONOCYTE # 0.8 TH/MM3 (0-0.9); NEUT % 87.9 % (16.0-70.0); PLATELET COUNT 304 TH/MM3 (150-450); RED BLOOD COUNT 6.35 MIL/MM3 (4.50-5.90); RED CELL DISTRIBUTION WIDTH 16.6 % (11.6-17.2); WHITE BLOOD COUNT 14.2 TH/MM3 (4.0-11.0)
[2018-03-23 07:25] LABS: INTERNATIONAL NORMALIZED RATIO 1.3 RATIO
[2018-03-23] MEDS ORDERED: SODIUM CHLOR 0.9% 1000 ML INJ 1,000 ML IV ONE ×2 (07:30→08:30)
--- NOTE | 2018-03-23 07:35 | RADRPT ---
EXAM DATE: 03/23/2018 7:24 AM EDT AGE/SEX: 68 years / Male INDICATIONS: Nausea, vomiting, short of breath, epigastric pain. CLINICAL DATA: This is the patient's initial encounter. Patient reports that signs and symptoms have been present for 2 days and indicates a pain score of 3/10. MEDICAL/SURGICAL HISTORY: Hypertension. Gastroesophageal reflux disease. None. COMPARISON: [facility] – [place]ST SINGLE AP, 12/05/2017. . FINDINGS: A single AP view of the chest demonstrates the lungs to be symmetrically aerated without evidence of mass, infiltrate or effusion. The cardiomediastinal contours are unremarkable. Osseous structures a re intact. CONCLUSION: No evidence of acute cardiopulmonary disease. Electronically signed by: Rebel Lucas MD 03/23/2018 7:33 AM EDT
[2018-03-23 08:03] LABS: ALBUMIN 4.7 GM/DL (3.4-5.0); ALKALINE PHOSPHATASE 72 U/L (45-117); ALT (GPT) 62 U/L (12-78); AST (GOT) 27 U/L (15-37); BICARBONATE 31.3 MEQ/L (21.0-32.0); BLOOD UREA NITROGEN 33 MG/DL (7-18); CALCIUM 10.8 MG/DL (8.5-10.1); CHLORIDE 82 MEQ/L (98-107); CREATININE 4.79 MG/DL (0.60-1.30); GLOMERULAR FILTRATION RATE 15 ML/MIN (>89); GLUCOSE,RANDOM 219 MG/DL (74-106); SODIUM (NA) 134 MEQ/L (136-145); TOTAL BILIRUBIN ADULT 0.4 MG/DL (0.2-1.0); TOTAL PROTEIN 9.7 GM/DL (6.4-8.2); TROPONIN I LESS THAN 0.02 NG/ML (0.02-0.05)
[2018-03-23] MEDS: POTASSIUM CHLOR 20 MEQ PREMIX 100 ML IV SCH ×2 (08:18→10:27)
--- NOTE | 2018-03-23 08:55 | RADRPT ---
EXAM DATE: 03/23/2018 8:49 AM EDT AGE/SEX: 68 years / Male INDICATIONS: Diffuse abdominal pain, nausea and vomiting for two days. CLINICAL DATA: This is the patient's initial encounter. Patient reports that signs and symptoms have been present for 2 days and indicates a pain score of 3/10. MEDICAL/SURGICAL HISTORY: Cardiovascular disease. Hypertension. None. RADIATION DOSE: 8.21 CTDI (mGy) COMPARISON: [facility] – [place], [place] ABDOMEN & PELVIS W/O CONTRAST, 12/05/2017. . TECHNIQUE: Multiple contiguous axial images were obtained through the abdomen. Images were obtained using multiple row detector helical technique. Using dose reduction techniques, radiation dose was ke pt as low as reasonably achievable to obtain optimal diagnostic quality images. FINDINGS: Lower Lungs: The visualized lower lungs are clear. Liver: The liver has a homogeneous density without space-occupying lesion. There is no dilation of th e biliary tree. Spleen: Homogeneous density without enlargement. Pancreas: Unremarkable without mass or calcification. Kidneys: Normal in size and shape. No evidence of mass or hydronephrosis. Adrenal Glands: Unremarkable. Aorta: The aorta and proximal iliac vessels are grossly unremarkable without aneurysmal dilation. Bowel/Mesentery: The bowel loops are grossly unremarkable. The cecum and sigmoid colon have a normal configuration. Abdominal Wall: Intact. Retroperitoneum: No evidence of adenopathy in the retrocrural, para-aortic, or deep pelvic regions. Bladder: Contours are smooth. Reproductive Organs: No abnormal masses or calcifications seen. Inguinal: The inguinal region is unremarkable without evidence of adenopathy. Bony Structures: Unremarkable. CONCLUSION: Negative CT Abdomen and Pelvis non contrast. Electronically signed by: Rebel Davila MD 03/23/2018 8:54 AM EDT
[2018-03-23] MEDS ORDERED: MAGNESIUM HYDROXIDE SUSP 30 ML CUP PO PRN (09:30)
[2018-03-23] MEDS ORDERED: LACTULOSE SYRUP 20 GM/30 ML CUP PO PRN (09:30)
[2018-03-23] MEDS ORDERED: NALOXONE HCL 0.4 MG/ML AMP IV PUSH PRN (09:30)
[2018-03-23] MEDS ORDERED: BISACODYL 10 MG SUPP RECTAL PRN (09:30)
[2018-03-23] MEDS ORDERED: SENNOSIDES 8.6 MG TAB PO PRN (09:30)
[2018-03-23] MEDS ORDERED: ACETAMINOPHEN 325 MG TAB PO PRN (09:30)
[2018-03-23] MEDS ORDERED: PROCHLORPERAZINE 25 MG SUPP RECTAL PRN (09:30)
[2018-03-23] MEDS: SODIUM CHLOR 0.9% 1000 ML INJ 1,000 ML IV SCH ×2 (10:26→17:54)
[2018-03-23] MEDS: ENOXAPARIN SODIUM 30 MG/0.3 ML SYRINGE SQ SCH (10:27)
--- NOTE | 2018-03-23 15:19 | HHI.HP ---
[facility] Unknown Admission Diagnosis Acute renal failure, dehydration, hypokalemia Diagnoses: Chief Complaint: abdominal pain , diapphea x 2 days Travel History International Travel<30 Days: No Contact w/Intl Traveler <30 Da: No Traveled to Known Affected Are: No History of Present Illness The patient is a 68-year-old -Danish male who presents to the emergency department via EMS for nausea, vomiting, diarrhea, and abdominal pain. The patient states he developed symptoms 2 days ago with vomiting which has been persistent. He then developed epigastric to periumbilical abdominal pain that radiates to the upper quadrants bilaterally. He also notes diarrhea several times overnight which she describes as loose, watery, brown, without any visible blood. The patient states he has similar symptoms several months ago when he was admitted to the hospital. He has undergone previous endoscopy which revealed ulcers per his report. He denies any history of pancreatitis. He denies any fever or chills, however, does note he has been sweating. He does note he has some lower bilateral chest pain radiating from the abdomen but denies any upper chest pain. He does note mild shortness of breath secondary to the abdominal pain. He denies any productive cough, dysuria, frequency, or urgency. Symptoms are moderate. Patient had similar problems in the past in Nov 2017. Says he did followed with GI as OP. Says doesn't know why he has diarrhea at times. Received IVF and feels some improvement. Review of Systems Except as stated in HPI: all other systems reviewed are Neg Past Family Social History Past Medical History HTN Past Surgical History Colonoscopy- was told to come back in 10yrs, and is almost due Reported Medications Reported Meds & Active Scripts Active Calcium Carbonate 1,500 Mg Tab 1,500 Mg PO BID 7 Days 1,500 mg calcium carbonate (600 mg elemental calcium) Magnesium Oxide 400 Mg Tab 400 Mg PO DAILY 7 Days Norvasc (Amlodipine Besylate) 5 Mg Tab 5 Mg PO DAILY Reported Omeprazole 20 Mg Tab 20 Mg PO DAILY [yrn-shea] 1 Tab PO DAILY [daron-plex] 1 Tab PO DAILY Allergies: Coded Allergies: No Known Allergies (Verified Allergy, Unknown, 04/20/08) Family History Healthy family Social History Quit smoking 10yrs ago, drink etoh occasionally, no drugs. Physical Exam Vital Signs Vital Signs Date Time Temp Pulse Resp B/P (MAP) Pulse Ox O2 Delivery O2 Flow Rate FiO2 03/23/18 14:16 96 21 03/23/18 12:19 96 14 120/84 (96) 96 03/23/18 08:59 100 16 116/86 (96) 96 Room Air 03/23/18 07:35 18 03/23/18 07:34 97.8 127 16 124/86 (99) 98 Nasal Cannula 2.00 03/23/18 07:34 97.8 124 18 124/86 (99) 98 Nasal Cannula 2.00 03/23/18 06:38 139 14 99 Room Air 03/23/18 06:35 97.6 138 13 122/96 (105) 100 Physical Exam GENERAL: This is a well-nourished, well-developed patient, in no apparent distress. SKIN: No rashes, ecchymoses or lesions. Cool and dry. HEAD: Atraumatic. Normocephalic. No temporal or scalp tenderness. EYES: Pupils equal round and reactive. Extraocular motions intact. No scleral icterus. No injection or drainage. ENT: Nose without bleeding, purulent drainage or septal hematoma. Throat without erythema, tonsillar hypertrophy or exudate. Uvula midline. Airway patent. NECK: Trachea midline. No JVD or lymphadenopathy. Supple, nontender, no meningeal signs. CARDIOVASCULAR: Regular rate and rhythm without murmurs, gallops, or rubs. RESPIRATORY: Clear to auscultation. Breath sounds equal bilaterally. No wheezes , rales, or rhonchi. GASTROINTESTINAL: Abdomen soft, non-tender, nondistended. No hepato-splenomegaly , or palpable masses. No guarding. MUSCULOSKELETAL: Extremities without clubbing, cyanosis, or edema. No joint tenderness, effusion, or edema noted. No calf tenderness. Negative Homans sign bilaterally. NEUROLOGICAL: Awake and alert. Cranial nerves II through XII intact. Motor and sensory grossly within normal limits. Five out of 5 muscle strength in all muscle groups. Normal speech. Laboratory Laboratory Tests Test 03/23/18 07:10 03/23/18 11:46 White Blood Count 14.2 Red Blood Count 6.35 Hemoglobin 17.7 Hematocrit 53.0 Mean Corpuscular Volume 83.4 Mean Corpuscular Hemoglobin 27.9 Mean Corpuscular Hemoglobin Concent 33.5 Red Cell Distribution Width 16.6 Platelet Count 304 Mean Platelet Volume 9.1 Neutrophils (%) (Auto) 87.9 Lymphocytes (%) (Auto) 6.0 Monocytes (%) (Auto) 5.8 Eosinophils (%) (Auto) 0.0 Basophils (%) (Auto) 0.3 Neutrophils # (Auto) 12.4 Lymphocytes # (Auto) 0.9 Monocytes # (Auto) 0.8 Eosinophils # (Auto) 0.0 Basophils # (Auto) 0.0 CBC Comment DIFF FINAL Differential Comment Prothrombin Time 13.0 Prothromb Time International Ratio 1.3 Blood Urea Nitrogen 33 Creatinine 4.79 Random Glucose 219 Total Protein 9.7 Albumin 4.7 Calcium Level 10.8 Alkaline Phosphatase 72 Aspartate Amino Transf (AST/SGOT) 27 Alanine Aminotransferase (ALT/SGPT) 62 Total Bilirubin 0.4 Sodium Level 134 Potassium Level 2.8 Chloride Level 82 Carbon Dioxide Level 31.3 Anion Gap 21 Estimat Glomerular Filtration Rate 15 Lactic Acid Level 3.9 4.8 Magnesium Level 0.9 Total Creatine Kinase 168 Troponin I LESS THAN 0.02 Lipase 207 Result Diagram: 03/23/18 0710 03/23/18 0710 Imaging Last Impressions Chest X-Ray 03/23/18 0657 Signed Impressions: CONCLUSION: No evidence of acute cardiopulmonary disease. Abdomen/Pelvis CT 03/23/18 0000 Signed Impressions: CONCLUSION: Negative CT Abdomen and Pelvis non contrast. Caprini VTE Risk Assessment Caprini VTE Risk Assessment: Mod/High Risk (score >= 2) Caprini Risk Assessment Model Point Value = 1 Point Value = 2 Point Value = 3 Point Value = 5 Age 41-60 Minor surgery BMI > 25 kg/m2 Swollen legs Varicose veins or History of unexplained or recurrent spontaneous Oral contraceptives or hormone replacement Sepsis (< 1 month) Serious lung disease, including pneumonia (< 1 month) Abnormal pulmonary function Acute myocardial infarction Congestive heart failure (< 1 month) History of inflammatory bowel disease Medical patient at bed rest Age 61-74 Arthroscopic surgery Major open surgery (> 45 min) Laparoscopic surgery (> 45 min) Malignancy Confined to bed (> 72 hours) Immobilizing plaster cast Central venous access Age >= 75 History of VTE Family history of VTE Factor V Leiden Prothrombin [id number] Lupus anticoagulant Anticardiolipin antibodies Elevated serum homocysteine Heparin-induced thrombocytopenia Other congenital or acquired thrombophilia Stroke (< 1 month) Elective arthroplasty Hip, pelvis, or leg fracture Acute spinal cord injury (< 1 month) Prophylaxis Regimen Total Risk Factor Score Risk Level Prophylaxis Regimen 0-1 Low Early ambulation 2 Moderate Order ONE of the following: *Sequential Compression Device (SCD) *Heparin 5000 units SQ BID 3-4 Higher Order ONE of the following medications: *Heparin 5000 units SQ TID *Enoxaparin/Lovenox 40 mg SQ daily (WT < 150 kg, CrCl > 30 mL/min) *Enoxaparin/Lovenox 30 mg SQ daily (WT < 150 kg, CrCl > 10-29 mL/min) *Enoxaparin/Lovenox 30 mg SQ BID (WT < 150 kg, CrCl > 30 mL/min) AND/OR *Sequential Compression Device (SCD) 5 or more Highest Order ONE of the following medications: *Heparin 5000 units SQ TID (Preferred with Epidurals) *Enoxaparin/Lovenox 40 mg SQ daily (WT < 150 kg, CrCl > 30 mL/min) *Enoxaparin/Lovenox 30 mg SQ daily (WT < 150 kg, CrCl > 10-29 mL/min) *Enoxaparin/Lovenox 30 mg SQ BID (WT < 150 kg, CrCl > 30 mL/min) AND *Sequential Compression Device (SCD) Assessment and Plan Assessment and Plan H/o gastroenteritis. Diarrhea x 2 days. Patient with intermittent diarrhea has a alhaji admission in Nov with similar complaints. Dehydration Acute renal failure with Cr at 3.8 Hypokalemia Hypomagnesemia H/o taking supplements [id number] nonprescription. HTN IV hydration. Stool for C. difficile. Stool studies for cultures. PPI. GI consult. Nephrology consult Patient reports he takes a blood pressure medicine which is 10 mg amlodipine. Check UA. Check kidney US, CT A/P reviewed and discussed with ER physician. No acute findings on CT We'll follow renal function post hydration. Replace electrolytes. Monitor DVT prophylaxis with SCD. Discussed Condition With patient, nurse, family at bedside , ED physician Physician Certification 2 Midnight Certification Type: Admission for Inpatient Services Order for Inpatient Services The services are ordered in accordance with Medicare regulations or non- Medicare payer requirements, as applicable. In the case of services not specified as inpatient-only, they are appropriately provided as inpatient services in accordance with the 2-midnight benchmark. Estimated LOS (days): 3 days is the estimated time the patient will need to remain in the hospital, assuming treatment plan goals are met and no additional complications. Post-Hospital Plan: Home Emili Pimentel MD Mar 23, 2018 15:19
[2018-03-23] MEDS ORDERED: MAGNESIUM SULFATE 1 GM PREMIX 100 ML IV ONE (15:45)
--- NOTE | 2018-03-23 15:53 | RADRPT ---
EXAM DATE: 03/23/2018 3:41 PM EDT AGE/SEX: 68 years / Male INDICATIONS: Increased BUN/Creatnine. CLINICAL DATA: This is the patient's initial encounter. Patient reports that signs and symptoms have been present for 1 day and indicates a pain score of 1/10. MEDICAL/SURGICAL HISTORY: Hypertension. Gastroesophageal reflux disease. . Dental bridge. COMPARISON: No prior exams available for comparison. MEASUREMENTS: Right Kidney:__10.2 x 4.0 x 4.4 cm cm Left Kidney:__7.7 x 3.2 x 4.6 cm cm FINDINGS: There is no hydronephrosis. No definite solid mass is identified. No definite stone is identified f or technique. The bladder is grossly intact for technique and not completely distended during the exa m.The IVC and aorta are grossly unremarkable. There is a small approximate 1.3 cm simple cyst midpole of the right kidney. Prostate gland is enlarged measures 5.1 x 5.3 cm in size. CONCLUSION: Enlarged prostate. Electronically signed by: Jonny Galicia MD 03/23/2018 3:52 PM EDT
--- NOTE | 2018-03-23 16:21 | MB ---
cc: Jen Grant MD DATE: 03/23/2018 REASON FOR CONSULTATION: Acute kidney injury with elevated BUN and creatinine. HISTORY OF PRESENT ILLNESS: This is a 68-year-old male with a past medical history of hypertension, gastroesophageal reflux disease, who came to the hospital with complaint of nausea, vomiting and diarrhea. I was called to see the patient because of elevated BUN and creatinine. The patient was found to have BUN of 33 and creatinine of 4.7. Previously, he had creatinine of 0.8. This was on 02/22 of this year. He had 1 episode of acute kidney injury with a creatinine of 2.3. This was in November of this year and then the creatinine improved. The patient denies any known history of renal disease. He has this nausea, vomiting or diarrhea which started 2 days ago and according to him it was too much for him to count and he was continuously having vomiting and diarrhea and was not able to keep anything down. He has some abdominal cramping pain. There was no history of taking any nonsteroidal anti-inflammatory drugs. He noticed that he is passing less urine. There is no history of dysuria or hematuria. There is no history of renal stone. The patient denies taking any nonsteroidal anti-inflammatory drugs. PAST MEDICAL HISTORY: Hypertension, gastroesophageal reflux disease. REVIEW OF SYSTEMS: The patient has no history of fever. No headache, dizziness or blurring of vision. No chest pain, no shortness of breath. He has just nausea, vomiting, diarrhea which started 2 days ago associated with some abdominal cramping. There was no blood in the stool or vomitus. There was no dysuria, hematuria, but he has decreased urine output, which according to him was due to decreased oral intake of the fluid. He was not able to keep anything down. There is no history of taking nonsteroidal anti-inflammatory drugs. SOCIAL HISTORY: There is no history of smoking. Occasionally drinks alcoholic beverages. FAMILY HISTORY: Noncontributory. ALLERGIES: HE HAS NO KNOWN DRUG ALLERGIES. MEDICATIONS: Currently, he is on the following medications: 1. Normal saline at 125 an hour. 2. Amlodipine 5 mg once a day. 3. Rody-Colace 1 tablet b.i.d. 4. Lovenox 30 mg every 12 hours. 5. Compazine as needed. 6. Dulcolax as needed. 7. Tylenol as needed. PHYSICAL EXAMINATION: GENERAL: The patient is awake, alert. He is not in acute distress. VITAL SIGNS: His last blood pressure was 120/84. There is no documented hypotensive episodes during this admission. Temperature is 97.8, oxygen saturation is 96% on room air. HEENT: Pupils are mid-constricted. Nonicteric sclerae. Conjunctivae normal. NECK: Supple. JVD is not elevated. LUNGS: The patient has bilateral good air entry with occasional wheezing. HEART: S1, S2, regular rhythm. ABDOMEN: Distended, soft, lax. There is no tenderness. Bowel sounds positive. EXTREMITIES: He has no pedal edema. LABORATORY DATA: WBC count is 14.2, hemoglobin 17.7, platelets of 304, neutrophils 87.9. Sodium 134, potassium 2.8, chloride 82, bicarbonate 31.3, BUN 33, creatinine 4.7. Lactic acid 3.9, and the repeat lactic acid is 4.8. Magnesium is 0.9. AST and ALT normal. Total protein is 9.7 with albumin of 4.7, lipase is 207. INR 1.3. Toxicology screen was negative, but this was done in November. The urinalysis also done at that time showing trace protein. He does not have any urine during this admission. IMAGING STUDIES: The patient had a chest x-ray done, which shows lung pablo clear. CT scan of the abdomen and pelvis was done without IV contrast and shows kidneys are normal in size and no evidence of hydronephrosis. There were no other abnormalities in the CT scan. ASSESSMENT AND PLAN: 1. Acute kidney injury. 2. Vomiting and diarrhea. 3. Dehydration. 4. Lactic acidosis. 5. Hypokalemia and hypomagnesemia. 6. History of hypertension. The patient has very high BUN and creatinine. The CT scan did not show any obstruction. I will check the urine sodium osmolality. Most likely he has dehydration causing this, but need to rule out other causes. I will get the urinalysis to see if he has proteinuria and send the serology. Magnesium was low; I will replace that. He already got the potassium. Continue the hydration. Avoid any nephrotoxins. Thank you for the consultation and the patient will be followed over the weekend by Dr. Morales. Yaquelin Q. Jumani, MD [facility] , 03:40 PM , 04:20 PM
[2018-03-23 17:30] LABS: LACTIC ACID SEPSIS PROTOCOL 3.6 mmol/L (0.4-2.0)
[2018-03-23] MEDS: LACTOBACILLUS ACIDOPHILUS TAB PO SCH (20:54)
[2018-03-23] MEDS: SODIUM CHLORIDE 0.9% FLUSH 10 ML FLUSH IV FLUSH SCH (20:55)
[2018-03-23] MEDS: DOCUSATE SODIUM 50 MG/SENNA 8.6 MG TAB PO SCH (20:55)
[2018-03-23] MEDS: metroNIDAZOLE 500 MG TAB PO SCH (20:55)
[2018-03-23 23:47] LABS: BILIRUBIN, URINE NEG (NEG); BLOOD, URINE NEG (NEG); GLUCOSE,URINE NEG (NEG); HYALINE CAST, URINE 21 /lpf (RARE); KETONE, URINE NEG (NEG); MUCUS URINE FEW /lpf (OCC); NITRITE,URINE NEG (NEG); URINE COLOR YELLOW (YELLW/STRAW); URINE LEUKOCYTE ESTERASE NEG (NEG)
[2018-03-24] VITALS (8 sets, daily range): BP systolic 98–117; BP diastolic 57–75; PULSE 71–85; RESP 16–18; TEMP 97.9–98.9; O2SAT 97–100
[2018-03-24 00:04] LABS: SODIUM,RANDOM URINE 20 MEQ/L
[2018-03-24 01:21] LABS: OSMOLALITY,URINE 449 MOSM/KG (300-1300)
[2018-03-24] MEDS: metroNIDAZOLE 500 MG TAB PO SCH ×4 (02:01→21:19)
[2018-03-24] MEDS: SODIUM CHLOR 0.9% 1000 ML INJ 1,000 ML IV SCH ×4 (05:00→21:20)
[2018-03-24] MEDS: LACTOBACILLUS ACIDOPHILUS TAB PO SCH ×3 (05:02→21:19)
[2018-03-24 06:27] LABS: AUTOMATED NEUTROPHIL # 8.4 TH/MM3 (1.8-7.7); BASOPHIL % 0.3 % (0.0-2.0); EOSINOPHIL % 0.1 % (0.0-4.0); HEMATOCRIT 37.1 % (39.0-51.0); HEMOGLOBIN 12.2 GM/DL (13.0-17.0); LYMPH % 14.8 % (9.0-44.0); LYMPHOCYTE # 1.6 TH/MM3 (1.0-4.8); MEAN CELL VOLUME 84.5 FL (80.0-100.0); MEAN CORPUSCULAR HEMOGLOBIN 27.8 PG (27.0-34.0); MEAN CORPUSCULAR HGB CONC 32.9 % (32.0-36.0); MEAN PLATELET VOLUME 9.3 FL (7.0-11.0); MONO % 9.6 % (0.0-8.0); MONOCYTE # 1.1 TH/MM3 (0-0.9); NEUT % 75.2 % (16.0-70.0); PLATELET COUNT 192 TH/MM3 (150-450); RED BLOOD COUNT 4.39 MIL/MM3 (4.50-5.90); RED CELL DISTRIBUTION WIDTH 15.6 % (11.6-17.2); WHITE BLOOD COUNT 11.1 TH/MM3 (4.0-11.0)
[2018-03-24 08:27] LABS: BICARBONATE 28.2 MEQ/L (21.0-32.0); CALCIUM 7.7 MG/DL (8.5-10.1); CREATININE 1.52 MG/DL (0.60-1.30); PHOSPHORUS 2.2 MG/DL (2.5-4.9)
[2018-03-24] MEDS: SODIUM CHLORIDE 0.9% FLUSH 10 ML FLUSH IV FLUSH SCH ×2 (09:00→21:00)
[2018-03-24] MEDS: amLODIPine BESYLATE 5 MG TAB PO SCH (09:04)
[2018-03-24] MEDS: DOCUSATE SODIUM 50 MG/SENNA 8.6 MG TAB PO SCH ×2 (09:04→21:19)
[2018-03-24] MEDS: MAGNESIUM OXIDE 400 MG TAB PO SCH (09:04)
[2018-03-24] MEDS: ENOXAPARIN SODIUM 30 MG/0.3 ML SYRINGE SQ SCH (09:05)
[2018-03-24] MEDS ORDERED: POTASSIUM CHLORIDE 10 MEQ CONTROLLED RELEASE TAB PO ONE (09:45)
[2018-03-24] MEDS ORDERED: MAGNESIUM OXIDE 400 MG TAB PO ONE (10:15)
[2018-03-24] MEDS ORDERED: MAGNESIUM SULFATE 1 GM PREMIX 100 ML IV ONE (15:00)
--- NOTE | 2018-03-24 15:23 | EKG ---
Date Performed: 03/23/2018 Time Performed: 06:00:52 PTAGE: 68 years EKG: SINUS TACHYCARDIA BORDERLINE RIGHT AXIS DEVIATION NONSPECIFIC ST & T-WAVE ABNORMALITY ABNOR MAL RHYTHM ECG PREVIOUS TRACING : 02/22/2018 19.14 COMPARED WITH PREVIOUS EKG SINUS TACHYCARDIA IS NEW DOCTOR: Min Coto Interpretating Date/Time 03/24/2018 15:22:20
--- NOTE | 2018-03-24 15:27 | HHI.NPPN ---
Subjective History of Present Illness Patient is doing well Objective Data Data 03/24/18 03/25/18 19:00 07:00 Intake Total 2585 ml Balance 2585 ml IV Total 2585 ml Vital Signs Date Time Temp Pulse Resp B/P (MAP) Pulse Ox O2 Delivery O2 Flow Rate FiO2 03/24/18 11:43 98.3 76 16 114/62 (79) 97 03/24/18 09:42 97 03/24/18 08:00 98.3 85 16 117/70 (86) 97 03/24/18 04:00 98.9 84 18 109/57 (74) 97 03/24/18 00:00 98.8 82 18 109/75 (86) 100 03/23/18 19:40 98.4 95 18 113/71 (85) 98 03/23/18 16:00 98.5 74 15 123/68 (86) 97 -: 03/24/18 0432 03/24/18 0432 Physical Exam General Appearance: Well Developed, Well Nourished Neck Neck Exam: Neck Supple Pulmonary Resp Exam: Clear Bilaterally, Breath Sounds Equal Cardiology CV Exam: Regular, Normal Sinus Rhythm Gastrointestinal/Abdomen GI Exam: Soft, Non-Tender, Positive Bowel Movement Extremeties Extremities Exam: No Edema Neurologic Neuro Exam: Alert Assessment/Plan Problem List: (1) Acute renal failure ICD Codes: N17.9 - Acute kidney failure, unspecified Status: Acute Plan: Acute renal failure is resolving creatinine declined to 1.5 Potassium was low continue to replace Low magnesium continue to replace If electrolytes have improved to further then he can be discharged from nephrology point of view (2) Hypokalemia ICD Codes: E87.6 - Hypokalemia Status: Acute Plan: Continue to replace (3) Dehydration ICD Codes: E86.0 - Dehydration Status: Acute Plan: Resolving Problem Qualifiers (1) Acute renal failure: Qualified Codes: N17.9 - Acute kidney failure, unspecified Justin Morales MD Mar 24, 2018 15:27
--- NOTE | 2018-03-24 15:32 | PD.CONS ---
HPI History of Present Illness This is a 68 year old slim male who has been in his usual state of health up until approximately 2 days before admission to the hospital on 03/23/2018. Patient had acute onset of symptoms of nausea vomiting and upper epigastric and gastric abdominal pain. Patient notes that he fried some Afghan fries at home but other than that could not think of any aggravating factors. Patient states had some of the same symptoms happened back in November 2017. Patient notes follow-up with GI as outpatient and was recommended colonoscopy but due to the co-pays on his insurance he was unable to do at that time. Currently patient did note some diaphoresis urine nausea and vomiting episodes but no known fever. Patient currently takes omeprazole at home and denies any dysphasia. After coming to the hospital and receiving IV fluids and treatment he notes all symptoms resolved within a 24-hour period. Labs show current hemoglobin 12.2 potassium on admission 2.9, WBC count 11.1, PT/INR 1.3, KATLIN is pending. CT of the abdomen and pelvis unremarkable. Patient's symptoms could have been related to gastroenteritis or viral symptoms. He currently is now symptom-free. (Marcela Ceja) PFSH Past Medical History HTN Past Surgical History Colonoscopy- was told to come back in 10yrs, and is almost due (Marcela Ceja) Coded Allergies: No Known Allergies (Verified Allergy, Unknown, 04/20/08) Medications Administered Medications Medications (Trade) Dose Ordered Sig/Kvng Route PRN Reason Start Time Stop Time Status Last Admin Dose Admin Sodium Chloride 1,000 ml @ 125 mls/hr Q8H IV 03/23/18 09:23 03/24/18 13:13 Enoxaparin Sodium (Lovenox Inj) 30 mg Q24H SQ 03/23/18 10:00 03/24/18 09:05 Senna/Docusate Sodium (Rody-Colace) 1 tab BID PO 03/23/18 21:00 03/24/18 09:04 Amlodipine Besylate (Norvasc) 5 mg DAILY PO 03/24/18 09:00 03/24/18 09:04 Magnesium Oxide (Mag-Ox) 400 mg DAILY PO 03/24/18 09:00 03/24/18 09:04 Metronidazole (Flagyl) 500 mg Q6H PO 03/23/18 20:00 03/24/18 14:45 Lactobacillus Acidophilus (Lactinex) 1 tab Q8H PO 03/23/18 22:00 03/24/18 14:45 Family History Healthy family Social History Quit smoking 10yrs ago, drink etoh occasionally, no drugs. (Marcela Ceja) Review of Systems Gastrointestinal: COMPLAINS OF: Abdominal pain, Nausea, Vomiting (Marcela Ceja) GI Exam Vitals I&O Last Impressions Chest X-Ray 03/23/18 0657 Signed Impressions: CONCLUSION: No evidence of acute cardiopulmonary disease. Renal Ultrasound 03/23/18 0000 Signed Impressions: CONCLUSION: Enlarged prostate. Abdomen/Pelvis CT 03/23/18 0000 Signed Impressions: CONCLUSION: Negative CT Abdomen and Pelvis non contrast. Vital Signs Date Time Temp Pulse Resp B/P (MAP) Pulse Ox O2 Delivery O2 Flow Rate FiO2 03/24/18 11:43 98.3 76 16 114/62 (79) 97 03/24/18 09:42 97 03/24/18 08:00 98.3 85 16 117/70 (86) 97 03/24/18 04:00 98.9 84 18 109/57 (74) 97 03/24/18 00:00 98.8 82 18 109/75 (86) 100 03/23/18 19:40 98.4 95 18 113/71 (85) 98 03/23/18 16:00 98.5 74 15 123/68 (86) 97 I/O 03/23/18 03/23/18 03/23/18 03/24/18 03/24/18 03/24/18 07:00 15:00 23:00 07:00 15:00 23:00 Intake Total 3700 ml 489 ml 620 ml 2585 ml Output Total 200 ml Balance 3500 ml 489 ml 620 ml 2585 ml Intake Oral 500 ml 620 ml IV Total 3200 ml 489 ml 2585 ml Output Urine Total 200 ml # Voids 4 # Bowel Movements 0 0 Laboratory Test 03/23/18 16:48 03/23/18 20:15 03/23/18 23:15 03/24/18 04:32 Lactic Acid Level 3.6 mmol/L 1.5 mmol/L Urine Color YELLOW Urine Turbidity CLEAR Urine pH 5.0 Urine Specific Coral 1.017 Urine Protein TRACE mg/dL Urine Glucose (UA) NEG mg/dL Urine Ketones NEG mg/dL Urine Occult Blood NEG Urine Nitrite NEG Urine Bilirubin NEG Urine Urobilinogen LESS THAN 2.0 MG/DL Urine Leukocyte Esterase NEG Urine RBC LESS THAN 1 /hpf Urine WBC 4 /hpf Urine Hyaline Casts 21 /lpf Urine Granular Casts 2 /lpf Urine Mucus FEW /lpf Microscopic Urinalysis Comment CULT NOT INDICATED Urine Osmolality 449 MOSM/KG Urine Random Sodium 20 MEQ/L White Blood Count 11.1 TH/MM3 Red Blood Count 4.39 MIL/MM3 Hemoglobin 12.2 GM/DL Hematocrit 37.1 % Mean Corpuscular Volume 84.5 FL Mean Corpuscular Hemoglobin 27.8 PG Mean Corpuscular Hemoglobin Concent 32.9 % Red Cell Distribution Width 15.6 % Platelet Count 192 TH/MM3 Mean Platelet Volume 9.3 FL Neutrophils (%) (Auto) 75.2 % Lymphocytes (%) (Auto) 14.8 % Monocytes (%) (Auto) 9.6 % Eosinophils (%) (Auto) 0.1 % Basophils (%) (Auto) 0.3 % Neutrophils # (Auto) 8.4 TH/MM3 Lymphocytes # (Auto) 1.6 TH/MM3 Monocytes # (Auto) 1.1 TH/MM3 Eosinophils # (Auto) 0.0 TH/MM3 Basophils # (Auto) 0.0 TH/MM3 CBC Comment DIFF FINAL Differential Comment Blood Urea Nitrogen 23 MG/DL Creatinine 1.52 MG/DL Random Glucose 92 MG/DL Calcium Level 7.7 MG/DL Phosphorus Level 2.2 MG/DL Sodium Level 137 MEQ/L Potassium Level 2.9 MEQ/L Chloride Level 98 MEQ/L Carbon Dioxide Level 28.2 MEQ/L Anion Gap 11 MEQ/L Estimat Glomerular Filtration Rate 56 ML/MIN Total Creatine Kinase 247 U/L Test 03/24/18 07:55 Date/Time Source Procedure Growth Status 03/23/18 14:00 Stool Stool Cryptosporidium Exam Pending Received 03/23/18 14:00 Stool Stool Stool Pus (MILADY) Pending Received 03/23/18 14:00 Stool Stool Giardia Antigen (MILADY) Pending Received Physical Examination HEENT: normocephalic; atraumatic; no jaundice. Throat is clear. NECK: Neck is supple, no JVD, no lymphadenopathy. CHEST: Chest is clear to auscultation and percussion. CARDIAC: Regular rate and rhythm ABDOMEN: Soft, nondistended, nontender to the gastric area; no hepatosplenomegaly; bowel sounds are present in all four quadrants. EXTREMITIES: No clubbing, cyanosis, or edema. SKIN: Normal; no rash; no jaundice. PUBLIC SPEAKING INSTRUCTOR: No focal deficits; alert and oriented times three. (Marcela Ceja) Assessment and Plan Plan Nausea vomiting diarrhea and abdominal pain onset of symptoms 2 days before admission after coming to hospital patient received IV fluids and treatment for hypokalemia, Flagyl and probiotics patient's symptoms resolved within 24 hours. Current labs show hemoglobin 12.2, potassium 2.5 on admission which was treated, PT/INR 1.3, KATLIN pending. CT of the abdomen and pelvis unremarkable. Aggregating factors could have been greasy Afghan fries cooked at home, but other than that patient cannot recall any other unusual foods. Patient return to GI office after back in November or December 2017 and was recommended colonoscopy but patient had to hold off secondary to insurance co-pay. Recommended again that he come back and have outpatient colonoscopy. Currently patient's dyspepsia is controlled with omeprazole daily Plan Diet per attending as tolerated Omeprazole Antiemetics Monitor labs KATLIN pending Monitor for any further signs and symptoms of diarrhea or abdominal gastric pain which is now resolved We will follow-up in GI office as outpatient, Patient was seen per Dr. Pittman and myself, note was written on his behalf (Marcela Ceja) Physician Comments Seen and examined, plan as above. Will follow up as out patient. Please notify us if needed . Thank you for the consult. (Jhony Pittman MD) Marcela Ceja Mar 24, 2018 15:32 Jhony Pittman MD Mar 25, 2018 13:54
--- NOTE | 2018-03-24 15:51 | HHI.PR ---
Subjective Remarks Patient has no complaints. He denies muscle pain. He was here for similar episode 2 weeks ago. Further history reveals that he takes multiple supplements and that he has been ingesting baking soda daily. Supplements include iron, lung support, renal support, adrenaline and/or adrenal support. Objective Vitals Vital Signs Date Time Temp Pulse Resp B/P (MAP) Pulse Ox O2 Delivery O2 Flow Rate FiO2 03/24/18 11:43 98.3 76 16 114/62 (79) 97 03/24/18 09:42 97 03/24/18 08:00 98.3 85 16 117/70 (86) 97 03/24/18 04:00 98.9 84 18 109/57 (74) 97 03/24/18 00:00 98.8 82 18 109/75 (86) 100 03/23/18 19:40 98.4 95 18 113/71 (85) 98 03/23/18 16:00 98.5 74 15 123/68 (86) 97 I/O 03/23/18 03/23/18 03/23/18 03/24/18 03/24/18 03/24/18 07:00 15:00 23:00 07:00 15:00 23:00 Intake Total 3700 ml 489 ml 620 ml 2585 ml Output Total 200 ml Balance 3500 ml 489 ml 620 ml 2585 ml Intake Oral 500 ml 620 ml IV Total 3200 ml 489 ml 2585 ml Output Urine Total 200 ml # Voids 4 # Bowel Movements 0 0 Result Diagram: 03/24/18 0432 03/24/18 043 Objective Remarks GENERAL: Well-nourished, well-developed patient. SKIN: Warm and dry. HEAD: Normocephalic. EYES: No scleral icterus. No injection or drainage. NECK: Supple, trachea midline. No JVD or lymphadenopathy. CARDIOVASCULAR: Regular rate and rhythm without murmurs, gallops, or rubs. RESPIRATORY: Breath sounds equal bilaterally. No accessory muscle use. GASTROINTESTINAL: Abdomen soft, non-tender, nondistended. EXTREMITIES: No cyanosis, or edema. NEUROLOGICAL: Awake, alert, and oriented x 3. Non-focal. A/P Problem List: (1) SEAN (acute kidney injury) ICD Code: N17.9 - Acute kidney failure, unspecified Status: Resolved (2) Muscle spasm ICD Code: M62.838 - Other muscle spasm Status: Resolved (3) Dehydration ICD Code: E86.0 - Dehydration Status: Acute Assessment and Plan Dehydration, acute renal insufficiency Etiology may have to do with excessive vitamin supplementation versus diarrhea ( or both) Creatinine is improved from 4.3-1.5 overnight on IV fluids Continue IV fluid hydration Hypokalemia Replaced this morning, will follow with a.m. labs Hypomagnesemia Replaced this morning we will follow with a.m. labs Excessive supplement use Patient takes a number of vitamins including iron, lung support, adrenal support , renal support I recommended that he stay off of supplements for the next month I recommended given recent history that he avoid adrenal and renal support vitamins altogether DVT prophylaxis Suresh Ibrahim MD Mar 24, 2018 15:51
[2018-03-25 00:05] VITALS: BP 113/57; PULSE 75; RESP 18; TEMP 98.1; O2SAT 95
[2018-03-25] MEDS: metroNIDAZOLE 500 MG TAB PO SCH ×3 (02:12→15:03)
[2018-03-25] MEDS: SODIUM CHLOR 0.9% 1000 ML INJ 1,000 ML IV SCH ×3 (02:23→10:23)
[2018-03-25] MEDS: LACTOBACILLUS ACIDOPHILUS TAB PO SCH ×2 (06:24→15:02)
[2018-03-25 08:00] VITALS: BP 103/77; PULSE 81; RESP 18; TEMP 98.1; O2SAT 98
[2018-03-25] MEDS: DOCUSATE SODIUM 50 MG/SENNA 8.6 MG TAB PO SCH (08:44)
[2018-03-25] MEDS: MAGNESIUM OXIDE 400 MG TAB PO SCH (08:45)
[2018-03-25] MEDS: SODIUM CHLORIDE 0.9% FLUSH 10 ML FLUSH IV FLUSH SCH (08:45)
[2018-03-25] MEDS: amLODIPine BESYLATE 5 MG TAB PO SCH (08:45)
[2018-03-25 09:43] LABS: AUTOMATED NEUTROPHIL # 6.3 TH/MM3 (1.8-7.7); BASOPHIL # 0.1 TH/MM3 (0-0.2); BASOPHIL % 0.7 % (0.0-2.0); EOSINOPHIL % 0.4 % (0.0-4.0); HEMATOCRIT 44.4 % (39.0-51.0); HEMOGLOBIN 14.5 GM/DL (13.0-17.0); LYMPH % 19.7 % (9.0-44.0); LYMPHOCYTE # 1.8 TH/MM3 (1.0-4.8); MEAN CELL VOLUME 86.4 FL (80.0-100.0); MEAN CORPUSCULAR HEMOGLOBIN 28.2 PG (27.0-34.0); MEAN CORPUSCULAR HGB CONC 32.6 % (32.0-36.0); MEAN PLATELET VOLUME 8.8 FL (7.0-11.0); MONO % 9.7 % (0.0-8.0); MONOCYTE # 0.9 TH/MM3 (0-0.9); NEUT % 69.5 % (16.0-70.0); PLATELET COUNT 232 TH/MM3 (150-450); RED BLOOD COUNT 5.13 MIL/MM3 (4.50-5.90); RED CELL DISTRIBUTION WIDTH 16.5 % (11.6-17.2)
[2018-03-25 10:07] LABS: BICARBONATE 22.8 MEQ/L (21.0-32.0); CREATININE 1.25 MG/DL (0.60-1.30); MAGNESIUM 1.8 MG/DL (1.5-2.5)
[2018-03-25 10:10] VITALS: O2SAT 98
[2018-03-25] MEDS ORDERED: POTASSIUM CHLORIDE 20 MEQ CONTROLLED RELEASE TAB PO ONE (11:15)
[2018-03-25 12:00] VITALS: BP 108/62; PULSE 80; RESP 18; TEMP 98.2; O2SAT 98
[2018-03-25] MEDS: ENOXAPARIN SODIUM 30 MG/0.3 ML SYRINGE SQ SCH (12:09)
[2018-03-25] MEDS ORDERED: POTA-163 PO (13:54)
--- NOTE | 2018-03-25 14:00 | HHI.NPPN ---
Subjective History of Present Illness Patient is doing well Objective Data Data Vital Signs Date Time Temp Pulse Resp B/P (MAP) Pulse Ox O2 Delivery O2 Flow Rate FiO2 03/25/18 12:00 98.2 80 18 108/62 (77) 98 03/25/18 10:10 98 21 03/25/18 08:00 98.1 81 18 103/77 (86) 98 03/25/18 00:05 98.1 75 18 113/57 (75) 95 03/24/18 19:45 98.4 71 18 98/64 (75) 97 03/24/18 18:15 97 21 03/24/18 15:57 97.9 71 18 108/63 (78) 97 -: 03/25/18 0914 03/25/18 0914 Physical Exam General Appearance: Well Developed, Well Nourished Neck Neck Exam: Neck Supple Pulmonary Resp Exam: Clear Bilaterally, Breath Sounds Equal Cardiology CV Exam: Regular, Normal Sinus Rhythm Gastrointestinal/Abdomen GI Exam: Soft, Non-Tender, Positive Bowel Movement Extremeties Extremities Exam: No Edema Neurologic Neuro Exam: Alert Assessment/Plan Problem List: (1) Acute renal failure ICD Codes: N17.9 - Acute kidney failure, unspecified Status: Acute Plan: Acute renal failure is resolving creatinine declined to 1.2 Potassium was low continue to replace Low magnesium continue to replace If electrolytes improved further then he can be discharged from nephrology point of view Dr. Grant to follow (2) Hypokalemia ICD Codes: E87.6 - Hypokalemia Status: Acute Plan: Continue to replace (3) Dehydration ICD Codes: E86.0 - Dehydration Status: Acute Plan: Resolving Problem Qualifiers (1) Acute renal failure: Qualified Codes: N17.9 - Acute kidney failure, unspecified Justin Morales MD Mar 25, 2018 14:00
--- NOTE | 2018-03-25 15:24 | HHI.GIFU ---
Subjective Remarks Patient is sitting on side of the bed excited to be going home today No nausea vomiting or abdominal pain Afebrile (Marcela Ceja) Objective Vitals I&O Vital Signs Date Time Temp Pulse Resp B/P (MAP) Pulse Ox O2 Delivery O2 Flow Rate FiO2 03/25/18 12:00 98.2 80 18 108/62 (77) 98 03/25/18 10:10 98 21 03/25/18 08:00 98.1 81 18 103/77 (86) 98 03/25/18 00:05 98.1 75 18 113/57 (75) 95 03/24/18 19:45 98.4 71 18 98/64 (75) 97 03/24/18 18:15 97 21 03/24/18 15:57 97.9 71 18 108/63 (78) 97 I/O 03/24/18 03/24/18 03/24/18 03/25/18 03/25/18 03/25/18 07:00 15:00 23:00 07:00 15:00 23:00 Intake Total 620 ml 2585 ml 2080 ml 2100 ml Balance 620 ml 2585 ml 2080 ml 2100 ml Intake Oral 620 ml 480 ml 1100 ml IV Total 2585 ml 1600 ml 1000 ml # Voids 4 4 4 # Bowel Movements 0 1 1 Laboratory Laboratory Tests Test 03/25/18 09:14 White Blood Count 9.0 Red Blood Count 5.13 Hemoglobin 14.5 Hematocrit 44.4 Mean Corpuscular Volume 86.4 Mean Corpuscular Hemoglobin 28.2 Mean Corpuscular Hemoglobin Concent 32.6 Red Cell Distribution Width 16.5 Platelet Count 232 Mean Platelet Volume 8.8 Neutrophils (%) (Auto) 69.5 Lymphocytes (%) (Auto) 19.7 Monocytes (%) (Auto) 9.7 Eosinophils (%) (Auto) 0.4 Basophils (%) (Auto) 0.7 Neutrophils # (Auto) 6.3 Lymphocytes # (Auto) 1.8 Monocytes # (Auto) 0.9 Eosinophils # (Auto) 0.0 Basophils # (Auto) 0.1 CBC Comment DIFF FINAL Differential Comment Blood Urea Nitrogen 11 Creatinine 1.25 Random Glucose 107 Calcium Level 9.0 Magnesium Level 1.8 Sodium Level 140 Potassium Level 2.9 Chloride Level 106 Carbon Dioxide Level 22.8 Anion Gap 11 Estimat Glomerular Filtration Rate 70 Date/Time Source Procedure Growth Status 03/23/18 14:00 Stool Stool Cryptosporidium Exam Pending Resulted 03/23/18 14:00 Stool Stool Stool Pus (MILADY) - Final MODERATE WBC'S Resulted 03/23/18 14:00 Stool Stool Giardia Antigen (MILADY) Pending Resulted Physical Exam HEENT: normocephalic; atraumatic; no jaundice. NECK: Neck is supple, no JVD, no lymphadenopathy. CHEST: Chest is clear to auscultation and percussion. CARDIAC: Regular rate and rhythm with no murmur gallop or rubs. ABDOMEN: Round, soft, nondistended, nontender; no hepatosplenomegaly; bowel sounds are present in all four quadrants. EXTREMITIES: No clubbing, cyanosis, or edema. SKIN: Normal; no rash; no jaundice. 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 (Marcela Ceja) Assessment and Plan Plan Nausea vomiting diarrhea and abdominal pain onset of symptoms 2 days before admission after coming to hospital patient received IV fluids and treatment for hypokalemia, Flagyl and probiotics patient's symptoms resolved within 24 hours. Current labs show hemoglobin 12.2, potassium 2.5 on admission which was treated, PT/INR 1.3, KATLIN pending. CT of the abdomen and pelvis unremarkable. Aggregating factors could have been greasy [place] fries cooked at home, but other than that patient cannot recall any other unusual foods. Patient return to GI office after back in November or December 2017 and was recommended colonoscopy but patient had to hold off secondary to insurance co-pay. Recommended again that he come back and have outpatient colonoscopy. Currently patient's dyspepsia is controlled with omeprazole daily 03/25/2018 patient is excited to be going home, denies any current GI symptoms. Supportive care and explained to patient we would see him in the office in follow-up. Plan Diet per attending as tolerated Omeprazole continue We will follow-up in GI office as outpatient, Patient was seen per Dr. Pittman and myself, note was written on his behalf (Marcela Ceja) Physician Comments Agree with the plan as above. (Jhony Pittman MD) Marcela Ceja Mar 25, 2018 15:24 Jhony Pittman MD Mar 25, 2018 22:43
--- NOTE | 2018-03-25 17:12 | HHI.DS ---
Discharge Summary Admission Date Mar 23, 2018 at 09:25 Discharge Date: Mar 25, 2018 Admitting Diagnosis Acute renal failure, dehydration, hypokalemia (1) SEAN (acute kidney injury) ICD Code: N17.9 - Acute kidney failure, unspecified Status: Resolved (2) Muscle spasm ICD Code: M62.838 - Other muscle spasm Status: Resolved (3) Dehydration ICD Code: E86.0 - Dehydration Status: Acute Procedures none Brief History - From Admission The patient is a 68-year-old -[place] male who presents to the emergency department via EMS for nausea, vomiting, diarrhea, and abdominal pain. The patient states he developed symptoms 2 days ago with vomiting which has been persistent. He then developed epigastric to periumbilical abdominal pain that radiates to the upper quadrants bilaterally. He also notes diarrhea several times overnight which she describes as loose, watery, brown, without any visible blood. The patient states he has similar symptoms several months ago when he was admitted to the hospital. He has undergone previous endoscopy which revealed ulcers per his report. He denies any history of pancreatitis. He denies any fever or chills, however, does note he has been sweating. He does note he has some lower bilateral chest pain radiating from the abdomen but denies any upper chest pain. He does note mild shortness of breath secondary to the abdominal pain. He denies any productive cough, dysuria, frequency, or urgency. Symptoms are moderate. Patient had similar problems in the past in Nov 2017. Says he did followed with GI as OP. Says doesn't know why he has diarrhea at times. Received IVF and feels some improvement. CBC/BMP: 03/25/18 0914 03/25/18 0914 Significant Findings Laboratory Tests Test 03/23/18 07:10 03/23/18 11:46 03/23/18 14:00 03/23/18 16:48 White Blood Count 14.2 TH/MM3 (4.0-11.0) Red Blood Count 6.35 MIL/MM3 (4.50-5.90) Hemoglobin 17.7 GM/DL (13.0-17.0) Hematocrit 53.0 % (39.0-51.0) Neutrophils (%) (Auto) 87.9 % (16.0-70.0) Lymphocytes (%) (Auto) 6.0 % (9.0-44.0) Neutrophils # (Auto) 12.4 TH/MM3 (1.8-7.7) Lymphocytes # (Auto) 0.9 TH/MM3 (1.0-4.8) Prothrombin Time 13.0 SEC (9.8-11.6) Blood Urea Nitrogen 33 MG/DL (7-18) Creatinine 4.79 MG/DL (0.60-1.30) Random Glucose 219 MG/DL (74-106) Total Protein 9.7 GM/DL (6.4-8.2) Calcium Level 10.8 MG/DL (8.5-10.1) Sodium Level 134 MEQ/L (136-145) Potassium Level 2.8 MEQ/L (3.5-5.1) Chloride Level 82 MEQ/L (98-107) Anion Gap 21 MEQ/L (5-15) Estimat Glomerular Filtration Rate 15 ML/MIN (>89) Lactic Acid Level 3.9 mmol/L (0.4-2.0) 4.8 mmol/L (0.4-2.0) 3.6 mmol/L (0.4-2.0) Magnesium Level 0.9 MG/DL (1.5-2.5) Troponin I LESS THAN 0.02 NG/ML Test 03/23/18 20:15 03/23/18 23:15 03/24/18 04:32 03/24/18 07:55 Urine Mucus FEW /lpf (OCC) White Blood Count 11.1 TH/MM3 (4.0-11.0) Red Blood Count 4.39 MIL/MM3 (4.50-5.90) Hemoglobin 12.2 GM/DL (13.0-17.0) Hematocrit 37.1 % (39.0-51.0) Neutrophils (%) (Auto) 75.2 % (16.0-70.0) Monocytes (%) (Auto) 9.6 % (0.0-8.0) Neutrophils # (Auto) 8.4 TH/MM3 (1.8-7.7) Monocytes # (Auto) 1.1 TH/MM3 (0-0.9) Blood Urea Nitrogen 23 MG/DL (7-18) Creatinine 1.52 MG/DL (0.60-1.30) Calcium Level 7.7 MG/DL (8.5-10.1) Phosphorus Level 2.2 MG/DL (2.5-4.9) Potassium Level 2.9 MEQ/L (3.5-5.1) Estimat Glomerular Filtration Rate 56 ML/MIN (>89) Test 03/25/18 09:14 Monocytes (%) (Auto) 9.7 % (0.0-8.0) Random Glucose 107 MG/DL (74-106) Potassium Level 2.9 MEQ/L (3.5-5.1) Estimat Glomerular Filtration Rate 70 ML/MIN (>89) PE at Discharge GENERAL: Well-nourished, well-developed patient. SKIN: Warm and dry. HEAD: Normocephalic. EYES: No scleral icterus. No injection or drainage. NECK: Supple, trachea midline. No JVD or lymphadenopathy. CARDIOVASCULAR: Regular rate and rhythm without murmurs, gallops, or rubs. RESPIRATORY: Breath sounds equal bilaterally. No accessory muscle use. GASTROINTESTINAL: Abdomen soft, non-tender, nondistended. EXTREMITIES: No cyanosis, or edema. NEUROLOGICAL: Awake, alert, and oriented x 3. Non-focal. Hospital Course 68-year-old male admitted for recurrent dehydration and acute renal insufficiency. Patient responded well to IV fluid rehydration. Further history revealed that he was taking a variety of supplements including renal support supplements and adrenal support supplements. It is possible that these supplements have interfered with his ability to read balances electrolyte and renal function following his episode of dehydration 2 weeks ago with rhabdomyolysis. I recommended that he take at least 1-2 months off of the supplements and possibly not add back the adrenal or renal support supplements. Patient has had recurrent episodes of hypokalemia. Further history revealed that he has been taking his daily stool softeners despite being admitted with diarrhea. He has follow-up arranged with [facility] tomorrow. I have provided 2 lab slips to check his potassium and magnesium levels beginning tomorrow. I provided him 20 mEq of oral potassium supplementation for 3 days. I expect patient is at his potassium will be able to normalize once he stopped stool softeners. Further episodes of hypokalemia can be managed as an outpatient through his primary care provider. His renal function has returned to normal and he is appropriate for discharge at this time. Pt Condition on Discharge: Good Discharge Disposition: Discharge Home Discharge Time: <= 30 minutes Discharge Instructions DIET: Follow Instructions for: As Tolerated, No Restrictions Activities you can perform: Regular-No Restrictions Suresh Castro MD Mar 25, 2018 17:12
== END 2018-03-25 15:44 | disposition home or self-care (01) | DRG 683 ==
LOC: NEPE 06:20 → NEDA 09:25 → N06A 12:16
PROVIDERS: ADMIT Family Medicine; ATTEND Family Medicine
DX: N17.9 Acute kidney failure, unspecified (principal); E87.2 Acidosis; E83.42 Hypomagnesemia; I10 Essential (primary) hypertension; E86.0 Dehydration; E87.6 Hypokalemia; M62.838 Other muscle spasm; R19.7 Diarrhea, unspecified; R11.2 Nausea with vomiting, unspecified; K21.9 Gastro-esophageal reflux disease without esophagitis
CPT/HCPCS: 71045; 74176; 76775; 80048; 80053; 81001; 82550; 83605; 83690; 83735; 83935; 84100; 84300; 84484; 85025; 85610; 86021; 86038; 87205; 87328; 87329; 87425; 87493; 87506; 93005; 96361; 96365; 96372; 96375; C9113; J0500; J1650; J2270; J2765; J3475; J3480; J7030